=== PATIENT | female | born 1965 | race Caucasian/White ===

== ENCOUNTER → 2018-05-29 09:44 | Outpatient (CLI) | payer BC, SELFPAY ==
--- NOTE | 2018-05-29 09:48 | MM_ITS ---
MM Dig screening mamm BI w/CAD ORDERING PHYSICIAN : Britta Georges MD PATIENT AGE: 52 years GENDER: Female COMPARISON: June 2012, December 20152016, November 2014 INDICATION: ITS.REASON: SCREENING no no hormones no new complaints Family history.Maternal aunt with breast cancer. TECHNIQUE: Standard CC and MLO images were obtained. R2 CAD reviewed. Right breast CC nipple profile FINDINGS: Moderate breast density. No dominant mass nor suspicious calcifications No new areas of significant concern.. Stable well RIGHT BREAST:Stable lateral extension of soft tissue on cc view LEFT BREAST:Stable island of parenchymal tissue deep lateral left breast IMPRESSION: Stable bilateral mammogram. No new areas concern follow-up in one year recommended BI-RADS Category: 1 Negative RECOMMENDED FOLLOW-UP: 1YR 1 YEAR FOLLOW-UP (A letter has been sent to the patient regarding results of the study.)
== END ==
PROVIDERS: PCP Family Medicine; Visit Provider Family Medicine
DX: Z12.31 Encounter for screening mammogram for malignant neoplasm of breast (principal)
CPT/HCPCS: 77067

== ENCOUNTER → 2018-11-21 14:09 | Outpatient (POV) | payer BC, SELFPAY | PROVIDERS: Visit Provider Dermatology | DX: Z00.00 Encounter for general adult medical examination without abnormal findings (principal) ==

== ENCOUNTER → 2021-03-03 08:09 | Outpatient (CLI) | payer BC, SELFPAY ==
[2021-03-03 08:59] LABS: Chloride 105 mmol/L (98-107)
[2021-03-03 09:00] LABS: Potassium 4.2 mmoL/L (3.5-5.1); Sodium 140 mmol/L (136-145)
[2021-03-03 09:02] LABS: Alanine Aminotransferase 31 U/L (12-78); Albumin Level 4.2 g/dl (3.5-5.0); Albumin/Globulin Ratio 1.7 (1.1-1.8); Alkaline Phosphatase 68 U/L (38-126); Anion Gap 12.2 mEq/L (5-15); Aspartate Amino Transferase 31 U/L (14-36); Bilirubin,Total 0.6 mg/dl (0.2-1.3); Blood Urea Nitrogen 11 mg/dl (7-17); Calcium 9.5 mg/dl (8.4-10.2); Carbon Dioxide 27 mmol/L (22.0-30.0); Cholesterol 213 mg/dl (140-200); Estimated Glomerular Filt Rate 87 ml/min (>60); GFR (African American) 106 ML/MIN (>60); Globulin 2.5 g/dL (1.3-3.2); Glucose 87 mg/dl (74-100); Total Protein,Serum 6.7 g/dl (6.3-8.2); Triglycerides 186 mg/dl (30-150); VLDL Cholesterol 37 mg/dL (0-40)
[2021-03-03 09:03] LABS: Chol/HDL Ratio 4.3 (1-3.5); HDL Cholesterol 49 mg/dl (40-60)
[2021-03-03 09:14] LABS: Direct LDL Cholesterol 134.46 mg/dL (100-129)
[2021-03-03 09:33] LABS: Thyroid Stimulating Hormone 1.87 uIU/mL (0.465-4.68)
== END ==
PROVIDERS: Visit Provider Physician Assistant
DX: I10 Essential (primary) hypertension (principal); E78.2 Mixed hyperlipidemia
CPT/HCPCS: 36415; 80053; 80061; 84443

== ENCOUNTER → 2022-04-16 14:36 | Outpatient (CLI) | payer BC, SELFPAY ==
--- NOTE | 2022-04-16 14:46 | XR_ITS ---
FINAL REPORT CLINICAL HISTORY: Rt thumb cyst FINDINGS: RIGHT HAND 3 views of the right hand were obtained. There is no acute fracture or dislocation. Visualized joint spaces are normally aligned. There is a small chronic calcification adjacent to the 1st IP joint. There is soft tissue swelling overlying this. IMPRESSION: Soft tissue swelling overlying a small chronic calcification adjacent to the 1st IP joint. Reviewed, Interpreted and Dictated by Javed Lopez III, MD Transcribed by Erendira Goddard Authenticated and . [facility]
== END ==
PROVIDERS: PCP Family Medicine; Visit Provider Orthopaedic Surgery
DX: M71.341 Other bursal cyst, right hand (principal)
CPT/HCPCS: 73130

== ENCOUNTER → 2022-06-14 16:21 | Outpatient (CLI) | payer BC, OTHER, SELFPAY ==
[2022-06-14 16:28] LABS: Microscopic, Urine URINE MICROSCOPIC (MICROSCOPIC)
--- NOTE | 2022-06-14 16:38 | XR_ITS ---
PROCEDURE INFORMATION: Exam: XR Chest Exam date and time: 06/14/2022 4:48 PM Age: 56 years old Clinical indication: Screening exam; Pre-operative exam; Other: Pre op for cyst removal on right thumb; Additional info: Preop TECHNIQUE: Imaging protocol: Radiologic exam of the chest. Views: 2 views. COMPARISON: No relevant prior studies available. FINDINGS: Lungs: Unremarkable. No consolidation. Pleural spaces: Unremarkable. No pleural effusion. No pneumothorax. Heart/Mediastinum: Unremarkable. No cardiomegaly. Bones/joints: Unremarkable. IMPRESSION: No acute findings.
[2022-06-14 16:44] LABS: Basophils # 0.1 K/mm3 (0-0.2); Basophils % 1.2 % (0.1-2.0); Eosinophils # 0.3 K/mm3 (0.0-0.4); Eosinophils % 3.4 % (0.1-12.0); Hematocrit 43.6 % (37.0-47.0); Hemoglobin 13.6 g/dL (12.2-16.2); Lymphocytes % 27.1 % (10-50); Mean Corpuscular HGB Conc 31.2 g/dL (31.8-35.4); Mean Corpuscular Hemoglobin 28.3 pg (27.0-31.2); Mean Corpuscular Volume 90.8 fl (81-99); Mean Platelet Volume 7.8 fl (7.4-10.4); Monocytes # 0.5 K/mm3 (0.1-1.0); Monocytes % 6.6 % (1.7-9.3); Neutrophils # 4.6 K/mm3 (1.8-7.8); Neutrophils % 61.6 % (37.0-80.0); Platelet Count 291 K/mm3 (142-424); Red Cell Distribution Width 13.9 % (11.5-17.5); White Blood Count 7.5 K/mm3 (4.8-10.8)
[2022-06-14 17:09] LABS: Appearance,Urine CLEAR (Clear); Bilirubin,Urine Negative (Negative); Blood, Urine Negative (Negative); Color,Urine YELLOW (Yellow); Glucose,Urine (UA) Negative (Negative); Ketones,Urine Negative (Negative); Leukocyte Esterase,Urine Negative (Negative); Nitrate,Urine Negative (Negative); Protein,Urine Negative (Negative); Specific Gravity, Urine 1.025 (1.005-1.030); Urobilinogen,Urine 0.2 EU/dl (0.2)
[2022-06-14 17:23] LABS: Alanine Aminotransferase 29 U/L (12-78); Albumin Level 4.5 g/dl (3.5-5.0); Albumin/Globulin Ratio 1.7 (1.1-1.8); Alkaline Phosphatase 78 U/L (38-126); Anion Gap 10.9 mEq/L (5-15); Aspartate Amino Transferase 27 U/L (14-36); Bilirubin,Total 0.2 mg/dl (0.2-1.3); Blood Urea Nitrogen 13 mg/dl (7-17); Calcium 10.1 mg/dl (8.4-10.2); Carbon Dioxide 28 mmol/L (22.0-30.0); Chloride 104 mmol/L (98-107); Estimated Glomerular Filt Rate 87 ml/min (>60); GFR (African American) 105 ML/MIN (>60); Globulin 2.7 g/dL (1.3-3.2); Glucose 82 mg/dl (74-100); Potassium 3.9 mmoL/L (3.5-5.1); Sodium 139 mmol/L (136-145); Total Protein,Serum 7.2 g/dl (6.3-8.2)
[2022-06-14 17:37] LABS: Squamous Epithelial Cell,Urine Occasional #/hpf (0-5); WBC,Urine Occasional #/hpf (0-3)
== END ==
PROVIDERS: PCP Family Medicine; Visit Provider Orthopaedic Surgery
DX: Z01.818 Encounter for other preprocedural examination (principal); M67.441 Ganglion, right hand
CPT/HCPCS: 36415; 71046; 80053; 81001; 85025

== ENCOUNTER 2022-06-21 11:39 | Day surgery (SDC) | payer BC, OTHER, SELFPAY ==
[2022-06-17 13:36] VITALS: BMI 38.6
[2022-06-21 12:29] VITALS: BP 128/79; PULSE 82; RESP 18; TEMP 36.6; O2SAT 93
--- NOTE | 2022-06-21 13:25 | EXP.ANES.CKL ---
[facility] Disclaimer: The information contained in this section may have been updated after the patient was seen, as this information can be updated by other users. Medical History Allergies History of gastroesophageal reflux (GERD) Hypertension Hypertension Surgical History H/O esophagogastroduodenoscopy History of colonoscopy History of surgery History of tonsillectomy [place] teeth removed Family History Other Family history of cancer Family history of myocardial infarction Social History Smoking Status: Former smoker how long ago did patient quit smokin YEARS AGO alcohol intake: never substance use type: denies use current occupational status: employed Travel in the last 8 weeks: None [facility] Anesthesia Checklist Patient Identification Patient Identification: Arm Band and Verbal (Name & ) Structural Data Admitted From: Home Planned Operative Procedure/s: Excision of cyst - R thumb Consent for Planned Operative Procedure(s) Verified: Yes NPO Status Verified Time NPO: 00:00 Additional verifications Anesthesia Reactions: No Hx Blood Transfusions: No Blood Transfusion Reaction: No Airway Assessment C-Spine Mobility Assessed: Yes TMJ Mobility Assessed: Yes Dentition: Good Dentition Neurological Assessment Level of Consciousness: Awake Hx Seizures: No Numbness or tingling in extremities: No Anesthesia Plan Anesthesia Risk discussed: Yes Anesthesia Plan: Verified ASA Class: III Anesthesia Type: MAC
[2022-06-21 14:08] VITALS: TEMP 43
--- NOTE | 2022-06-21 14:24 | EXP.OP.NOTE ---
Date of procedure: 06/21/22 Pre-op Diagnosis:: Cyst right thumb Post-op Diagnosis:: Same Procedure performed:: Excision cyst right thumb Surgeon:: Tanvir Lechuga DO SENIOR TECHNICAL SUPPORT ENGINEER:: Jacek Kent Anesthesia: MAC and local Estimated blood loss (mL): 0 Operative findings:: Cyst adjacent to digital nerve right thumb Operative note:: Patient identified preoperatively right hand marked yes my initials transported operative suite placed upon operating bed. Patient given sedation. Right upper extremity prepped draped normal sterile fashion. Once prepped and draped final operative timeout performed to identify proper patient procedure and extremity. Everyone involved the case agreed. No counter indications to beginning. Did receive preoperative antibiotics. Marking pen was used to make plan incision over the soft tissue mass to right thumb. Local anesthesia was infiltrated to the incision site with a mixture of half percent Marcaine and 1% lidocaine. Esmarch was used exsanguinate extremity pneumatic tourniquet inflated to 250 mmHg. Skin knife was used incise through skin. Careful dissection was taken down and blunt dissection with the scissors were performed. There is cystic mass adjacent to the digital nerve on the radial aspect of the thumb. Care was taken to excise the cyst wall. Which was passed off for pathology. There was cystic fluid tissue within the mass. Care was taken to remove as much of cyst as possible. Copious irrigation wound performed. Hemostasis obtained electrocautery bipolar. Skin closed with 4-0 nylon suture. Tourniquet deflated. Sterile dressing placed. Patient waken sedation taken recovery stable condition. Condition: stable Disposition: PACU Specimens:: Right thumb cyst Complications:: None apparent.
[2022-06-21 14:25] VITALS: BP 118/73; PULSE 90; RESP 18; TEMP 37.3; O2SAT 96
[2022-06-21 14:40] VITALS: BP 127/78; PULSE 84; RESP 18; O2SAT 98
[2022-06-21 14:55] VITALS: BP 134/81; PULSE 81; RESP 16; O2SAT 97
== END 2022-06-21 14:55 | disposition home or self-care (01) ==
PROVIDERS: PCP Family Medicine; Visit Provider Orthopaedic Surgery
PROC: (CPT 26160; principal; 2022-06-21 13:15)
DX: M67.441 Ganglion, right hand (principal); Z79.899 Other long term (current) drug therapy
CPT/HCPCS: 26160; 88305; 88342; 96374

== ENCOUNTER → 2023-01-25 06:48 | Outpatient (CLI) | payer BC, OTHER, SELFPAY ==
--- NOTE | 2023-01-25 | CA_ITS ---
APPROVED REPORT Exam: Exercise Treadmill Technologist: Mirian Roche Ht: 5 ft 4 in Wt: 239 lbs BSA: 2.11 m2 HR: 67 bpm BP: 149/87 mmHg Rhythm: NSR Indications: Chest pain Stress Test Details Test: Carl HR Resting HR: 81 bpm Max Heart Rate (APMHR): 164 bpm Max HR Achieved: 155 bpm Target HR (85% APMHR): 139 bpm % of APMHR: 95 Recovery HR: 130 bpm HR response to stress: Normal HR response to stress BP Resting BP: 149.0/87.0 mmHg Max BP: 200.0/100.0 mmHg Recovery BP: 137.0/77.0 mmHg BP response to stress: Abnormal hypertensive response to stress. ECG Resting ECG: Sinus rhythm Stress ECG: < 1mm upsloping ST depression in lateral leads Arrhythmia: PVCs, PACs, ventricular couplets Recovery ECG: Return to baseline within 3 minutes of recovery Recovery Arrhythmia: PVCs Clinical Exercise duration: 08:21 min Highest Stage Achieved: Exercise capacity: 10.1 METs Overall Exercise Capacity for Age: Average Stress ECG Conclusion The patient was able to exercise for a total of 8 minutes, 21 seconds. She achieved a total of 10.1 METS. She has an average exercise capacity compared to age and sex matched peers. She has a normal HR, but exaggerated BP, response to exercise. Symptoms: Dyspnea Arrhythmias/Ectopy: PVCs, ventricular couplets, PACs ST-T Changes: Less than [address] depression. Conclusion: Average exercise capacity. Hypertensive response to stress. Possible ischemia present on stress EKG. Ectopy, including PVCs, ventricular couplets, and PACs, are present during stress. Myoview images are reported separately. Test Summary REST . . . . . . . Resting REST 01:51 0.0 0.0 81 . 149/ 87 . . Stage 1 01:00 10.0 1.7 86 . . . . Stage 1 02:00 10.0 1.7 96 . . . . Stage 1 03:00 10.0 1.7 100 . . . . Stage 2 01:00 12.0 2.5 109 . 170/100 . . Stage 2 02:00 12.0 2.5 119 . 170/100 . . Stage 2 03:00 12.0 2.5 122 . 190/ 80 . . Stage 3 01:00 14.0 3.4 140 . . . . Stage 3 . . . . . . . Myoview Injected Stage 3 02:00 14.0 3.4 153 . . . . Stage 3 02:21 14.0 3.4 155 . . . Stop exercise at 08:21 RECOVERY 01:00 0.0 0.0 135 . 200/100 . . RECOVERY 02:00 0.0 0.0 123 . 200/100 . . RECOVERY 03:00 0.0 0.0 110 . 175/ 85 . . RECOVERY 04:00 0.0 0.0 111 . 182/ 83 . . RECOVERY 05:00 0.0 0.0 112 . 182/ 83 . . RECOVERY 06:00 0.0 0.0 109 . 182/ 83 . . RECOVERY 06:33 0.0 0.0 124 . 137/ 77 . . Electronically signed by : Kerrie Boateng, 01/26/2023 22:32:16
--- NOTE | 2023-01-25 06:58 | NM_ITS ---
APPROVED REPORT Exam: Nuclear Stress Test Indication: OBESITY, HTN, FM HX, C.P. Patient Location: Outpatient Stress Tech: Mirian Roche [place] Tech:DARREN Alcaraz RT (R)(N)(M) Ht: 5 ft 4 in Wt: 239 lbs Bra Size: D HR: 81 bpm BP: 149/87 mmHg BSA: 2.11 m2 TID: 1.19 BMI: 41.0 History: OBESITY, HTN, FM HX, C.P. Procedure: Patient exercised on Carl protocol 8:21 minutes and sec, resting heart rate 81 bpm, resting blood pressure 149/87 mmHg, with exercise maximum heart rate achived was 155 bpm which is 95 % of the maximum predicted heart rate and blood pressure was 200/100 mmHg. Test was stopped due to FATIGUE. Patient denied any complaint of chest pain. Patient has Average exercise capacity, achieved 10.1 METs of workload on treadmill, the blood pressure response to exercise was Hypertensive. Cardiac Stress and Resting SPECT Images: Cardiac Stress and Resting SPECT images were obtained using technetium 99m Myoview 31.5 mCi stress and 10.05 mCi at rest. This is a technically difficult study due to body habitus and soft tissue overlying the cardiac borders as seen on raw images. This may affect the diagnostic interpretation of the study findings. Resting and stress imaging in both supine and prone positions demonstrate a small sized, mild, fixed perfusion defect in the mid to distal anterior wall. This may represent possible soft tissue attenuation, however true perfusion defect cannot be entirely ruled out. Inferior wall tapering is also present, most suggestive of diaphragmatic attenuation. Gated imaging demonstrates normal global and regional LV systolic function. LVEF is calculated at 58%. Conclusion: This is a technically difficult study due to body habitus and soft tissue overlying the cardiac borders as seen on raw images. This may affect the diagnostic interpretation of the study findings. Small sized, mild, fixed perfusion defect in the mid to distal anterior wall. This may represent possible soft tissue attenuation, however true perfusion defect cannot be entirely ruled out. No evidence of reversible ischemia. Gated imaging demonstrates normal global and regional LV systolic function. LVEF is calculated at 58%. Electronically signed by : Kerrie Boateng, 01/26/2023 22:37:53
== END ==
PROVIDERS: PCP Family Medicine; Visit Provider Physician Assistant
DX: R07.9 Chest pain, unspecified (principal)
CPT/HCPCS: 78452; 93017; A9502

== ENCOUNTER 2023-02-03 08:12 | Day surgery (SDC) | payer BC, OTHER, SELFPAY ==
[2023-02-03] VITALS (10 sets, daily range): BP systolic 114–154; BP diastolic 63–99; PULSE 56–70; RESP 16–20; O2SAT 69–97; BMI 40.3
--- NOTE | 2023-02-03 07:09 | IR_ITS ---
APPROVED REPORT Patient Location: Outpatient PROCEDURES Left heart catheterization Left ventriculogram Selective coronary INDICATION Angina pectoris, Abnormal Myoview, Informed consent was obtained prior to the procedure. COMPLICATIONS NONE Estimated Blood Loss: LESS THAN 10 ML TECHNIQUE One percent lidocaine used to anesthetize the right anterior aspect of the wrist. The right radial artery was accessed via the Seldinger technique. A 6 Guamanian sheath was placed in the right radial artery. 150 mg magnesium sulfate, 800 mcg of nitroglycerin, 1mg Lidocaine and 5000 U Heparin were given through the arterial sheath. The papa catheter was also used to perform left heart catheterization, left ventriculogram and selective coronary angiogram. At the end of the procedure the sheath was removed good hemostasis was achieved using Traclet band, patient was transferred to the postop holding area in stable condition. ANGIOGRAPHIC RESULTS The left main artery Normal The left anterior descending artery Normal The circumflex artery Normal The right coronary artery Massively large dominant and normal The [place] ventriculogram reveals Normal 65% The left ventricular end-diastolic pressure 30 mmHg IMPRESSION Normal coronary arteries Normal ejection fraction Moderate to severely elevated LVEDP PLAN 1. Treatment of diastolic dysfunction 2. Diuresis 3. Recommend sleep study Electronically signed by : Abdirizak Olson MD 02/03/2023 11:54:56
[2023-02-03 09:08] LABS: Basophils % 0.7 % (0.1-2.0); Eosinophils # 0.2 K/mm3 (0.0-0.4); Eosinophils % 3.6 % (0.1-12.0); Hemoglobin 13.9 g/dL (12.2-16.2); Lymphocytes # 1.5 K/mm3 (0.7-4.5); Lymphocytes % 24.3 % (10-50); Mean Corpuscular HGB Conc 31.5 g/dL (31.8-35.4); Mean Corpuscular Hemoglobin 28.7 pg (27.0-31.2); Mean Corpuscular Volume 91.1 fl (81-99); Mean Platelet Volume 7.8 fl (7.4-10.4); Monocytes # 0.6 K/mm3 (0.1-1.0); Monocytes % 8.9 % (1.7-9.3); Neutrophils # 3.9 K/mm3 (1.8-7.8); Neutrophils % 62.5 % (37.0-80.0); Platelet Count 278 K/mm3 (142-424); Red Blood Count 4.83 M/mm3 (4.20-5.40); Red Cell Distribution Width 13.7 % (11.5-17.5); White Blood Count 6.3 K/mm3 (4.8-10.8)
[2023-02-03 09:10] LABS: Chloride 105 mmol/L (98-107); Potassium 3.7 mmoL/L (3.5-5.1); Sodium 140 mmol/L (136-145)
[2023-02-03 09:13] LABS: Anion Gap 9.7 mEq/L (5-15); Blood Urea Nitrogen 14 mg/dl (7-17); Calcium 9.9 mg/dl (8.4-10.2); Carbon Dioxide 29 mmol/L (22.0-30.0); Creatinine Clearance Estimated 151 mL/min (50-200); Estimated Glomerular Filt Rate 87 ml/min (>60); GFR (African American) 105 ML/MIN (>60); Glucose 94 mg/dl (74-100)
== END 2023-02-03 14:24 | disposition home or self-care (01) ==
PROVIDERS: PCP Family Medicine; Visit Provider Internal Medicine
DX: I25.118 Atherosclerotic heart disease of native coronary artery with other forms of angina pectoris (principal); Z87.891 Personal history of nicotine dependence; Z82.49 Family history of ischemic heart disease and other diseases of the circulatory system; I10 Essential (primary) hypertension; Z79.899 Other long term (current) drug therapy
CPT/HCPCS: 80048; 85025; 93458; 99152; C1725; C1769; J1644; Q9967

== ENCOUNTER 2024-09-26 16:29 | Outpatient (CLI) | payer BC, OTHER, SELFPAY ==
--- NOTE | 2024-09-26 16:33 | XR_ITS ---
FINAL REPORT CLINICAL HISTORY: FALL, INJURY OF RT KNEE FINDINGS: Right knee Three views were obtained. There is no fracture or dislocation. There are minimal degenerative changes. Mild osteopenia is identified. No soft tissue abnormality is identified. IMPRESSION: No acute process. Reviewed, Interpreted and Dictated by Britta Bethea MD Transcribed by Alisson Snyder Authenticated and [facility]
== END 2024-09-26 23:59 | disposition home or self-care (01) ==
LOC: RAD 16:30
PROVIDERS: PCP Family Medicine; Visit Provider Physician Assistant
DX: M25.561 Pain in right knee (principal); S89.91XA Unspecified injury of right lower leg, initial encounter
CPT/HCPCS: 73562

== ENCOUNTER 2024-12-10 06:49 | Outpatient (CLI) | payer BC, OTHER, SELFPAY ==
--- NOTE | 2024-12-10 06:53 | MR_ITS ---
FINAL REPORT TECHNIQUE: Multiplanar and multisequence imaging the right knee was obtained without contrast. CLINICAL HISTORY: RIGHT KNEE PAIN FINDINGS: Bones: There is no acute fracture or marrow edema. There is mild lateral patellar subluxation with chondromalacia patella. There is grade 3 cartilage loss of the lateral patellar facet. There are no full thickness cartilage defects. Menisci: No meniscal tear is present. Ligaments: No cruciate or collateral ligament tear is present. Tendons/Muscles: The quadriceps and patellar tendons are within normal limits. The biceps femoris tendon and iliotibial tract are intact. The popliteus tendon is normal. Other: There is a moderate to large joint effusion. Mild prepatellar edema is noted. Remaining soft tissues are normal. IMPRESSION: Lateral patellar subluxation with chondromalacia patella. Reviewed, Interpreted and Dictated by Lyn Gallagher MD Transcribed by Homa Buchanan Authenticated and [facility]
--- NOTE | 2024-12-10 06:55 | XR_ITS ---
FINAL REPORT CLINICAL HISTORY: RULE OUT METALLIC FOREIGN BODY FOR MRI. prior hx metal in left eye. rust in right eye FINDINGS: ORBITS Look up and look down views were obtained for MRI clearance. No radiopaque foreign body identified. IMPRESSION: No radiopaque foreign body. Reviewed, Interpreted and Dictated by Lyn Gallagher MD Transcribed by Luann Gaytan Authenticated and . [facility]
== END 2024-12-10 23:59 | disposition home or self-care (01) ==
LOC: RAD 06:50
PROVIDERS: PCP Family Medicine; Visit Provider Physician Assistant
DX: S83.011A Lateral subluxation of right patella, initial encounter (principal); M22.41 Chondromalacia patellae, right knee
CPT/HCPCS: 70200; 73721

== ENCOUNTER → 2025-06-03 07:58 | Outpatient (CLI) | payer BC, OTHER, SELFPAY ==
--- OUTSIDE RECORDS SUMMARY | 2023-12-27 04:45 | XMS_ITS ---
[facility] Address [address] [place] [id number] Care Team Providers Care Returning Officer Name Role Phone Eva Georges Primary Care Provider Abdelrahman Roach Unavailable [phone] Allergies Allergen (clinical drug ingredient) Drug/Non Drug Allergy documented on EMR Reaction Allergy Type Onset Date Status sulfamethoxazole / trimethoprim Bactrim SOA Drug Allergy Active hydrochlorothiazide hydroCHLOROthiazide body aches D rug Allergy Active lisinopril Lisinopril Cough Drug Allergy Active REASON FOR VISIT 6 week f/u Medications Medication SIG (Take, Route, Frequency, Duration) Notes Start Date End Date Status Atorvastatin Calcium 10 MG 1 tablet Oral ly Once a day; Duration: 90 days 09/02/2023 Active Irbesartan 300 MG 1 tablet Orally Once a day 11/15/2023 Active Montelukast Sodium 10 MG TAKE 1 TABLET B Y MOUTH EVERY DAY FOR 90 DAYS; Duration: 90 Active Gmndqeqjy-Lpslnhav-PQ 30-2-10 MG/5ML 5-10 ml orally 4 times per day, prn 06/25/2022 Not-Taking Triamcinolone Acetonide 0.025 % 1 raymon applied topically 3 times a day; Duration: 7 day(s) 02/11/2020 Active Advil 200 MG 1 tab(s) orally ever y 4 hours Active Metoprolol Succinate ER 50 MG 1 tablet Orally Once a day; Duration: 90 days 12/27/2023 Active Vital Signs Weight 242.2 lbs 12/27/2023 Blood pressure systolic 130 mm Hg 12/27/19 24 Blood pressure diastolic 82 mm Hg 024 Heart Rate 80 /min 12/27/2023 Height 64.50 in 12/27/2023 BMI 40.93 kg/m2 12/27/2023 Encounters Encounter Location Date Provider Diagnosis [facility] [address] [facility] [address] [place] [id number] 12/27/2023 Abdelrahman Roach HTN (hypertension) I 10 and Mixed hyperlipidemia E78.2 Assessments Encounter Date Diagnosis (ICD Code) Assessment Notes Treatment Notes Treatment Clinical Notes Section Notes 12/27/2023 HTN (hypertension) (ICD-10 - I10) 12/27/2023 Mixed hyperlipidemia (ICD-10 - E78.2) Plan Of Treatment Medication Medication Name Sig Start Date Stop Date Notes Atorvastatin Calcium 10 MG 1 tablet Oral ly Once a day; Duration: 90 days 09/02/2023 Aspirin Adult Low Dose 81 MG 1 tab(s) orally bedtime 11/26 Metoprolol Succinate ER 25 MG 2 tablets Orally Once a day 01/20/2023 Irbesartan 300 MG 1 tablet Orally Once a day 11/15/2023 Metoprolol Succinate ER 50 MG 1 tablet O rally Once a day; Duration: 90 days 12/27/2023 Next Appt Details Follow Up: 3 Months fasting, Reason: Progress Notes * Gita LIVINGSTONDOB:1965 ( 59 yo F)Acc No.[id number]:12/27/2023 Progress Notes Patient: Gita TRUJILLO Provider: Lucius Roach M.D. :1965 A ge:58 Y S ex:Female Date:12/27/2023 Address:[address], [id number] Pcp:Eva Georges Subjective: * Chief Complaints: * 1 . 6 week f/u. * HPI: C ardiology: 58 year old female presents with c/o Blood Pressure Elevated?Pt here for 6 week f/u on hypertension, Irbesartan increased to 300mg and Metoprolol to 50mg. States she has been checking bp at home and has log with her today. * ROS: D ERMATOLOGY: no R narda. n o H luisa. G ASTROENTEROLOGY: no N ausea. n o V omiting. U ROLOGY: no D ifficulty urinating. n o B lood in urine. * Medical History: H ypertension, Migraines, Hyperlipidemia. * Surgical History: N eg Heart Cath-Dr Cortés @ [facility] 2007, colonoscopy 07/01/2014, DNC 06/2016, Endometrial Ablasion - Dr. Pringle - [facility] 03/01/2018, Cyst Removal of Right Thumb 06/2022, Left heart cath at [facility] 2022. * Hospitalization/Major Diagno stic Procedure: D enies Past Hospitalization. * Family History: F ather: 46 yrs, Heart attack. M other: alive 83 yrs, thyroid problems, HTN. 1 sister(s) . . * Social History: C URRENT TOBACCO USE S moking Status: Patient does NOT smoke. C affeine: yes, frequency: coffee and tea. Home smoke detector use: yes. Alcohol: No. * Medications: T aking Aspirin Adult Low Dose 81 MG Tablet Delayed Release 1 tab(s) orally bedtime , Taking Advil 200 MG Tablet 1 tab(s) orally every 4 hours , Taking Triamcinolone Acetonide 0.025 % Cream 1 raymon applied topically 3 times a day , Taking Montelukast Sodium 10 MG Tablet TAKE 1 TABLET BY MOUTH EVERY DAY FOR 90 DAYS , Taking Irbesartan 300 MG Tablet 1 tablet Orally Once a day , Taking Metoprolol Succinate ER 25 MG Tablet Extended Release 24 Hour 2 tablets Orally Once a day , Taking Atorvastatin Calcium 10 MG Tablet 1 tablet Orally Once a day , Not-Taking Jfxnzvhov-Qgntwjtu-LE 30-2-10 MG/5ML Syrup 5-10 ml orally 4 times per day, prn , Discontinued Mupirocin 2 % Ointment 1 raymon applied topically 3 times a day , Discontinued Irbesartan 150 MG Tablet TAKE 1 TABLET BY MOUTH EVERY DAY FOR 30 DAYS , Medication List reviewed and reconciled with the patient * Allergies: B actrim: SOA, hydroCHLOROthiazide: body aches, Lisinopril: Cough - Side Effects. Objective: * Vitals: W t:242.2, Temp:98.0, BP:130/82, HR:80, Nurse:lee, Ht: 64.50, BMI:40.93. * Examination: C ardiology: General Appearance: p leasant, NAD. H eart sounds: R RR, normal S1, S2. L ungs: c lear, no rales or wheezes. Assessment: * Assessment: 1. H TN (hypertension) - I10 (Primary) 2 . M ixed hyperlipidemia - E78.2? Plan: * Treatment: 2. M ixed hyperlipidemia Refill Atorvastatin Calcium Tablet, 10 MG, 1 tablet, Orally, Once a day, 90 days, 90, Refills 1.? 3. O thers Stop Aspirin Adult Low Dose Tablet Delayed Release, 81 MG, 1 tab(s), orally, bedtime. * Follow Up: 3 Months fasting * Images: Billing Information: * Visit Code: 60971 Office Visit, Est Pt., Level 3. * Procedure Codes: * Electronic signature of Edel Roach MD on 06/03/2025 at 08:01 AM EST Sign off status: Pending * Provider: Lucius Roach M.D. Date: 0 12/27/2023 Generated for Kennedy reyes/Jude/Loitting on: 08/03/2024 08:01 AM EST History and Physical Notes * HPI (History of Present Illness) Category Sub-Category Detail Notes Category Not es Cardiology Blood Pressure Elevated Pt here for 6 week f/u on hypertension, Irbesartan increased to 300mg and Metoprolol to 50mg. States she has been checking bp at home and has log with her today Examination Category Sub-Category Detail Notes Category Not es Cardiology Lungs: clear, no rales or wheezes Heart sounds: RRR, normal S1, S2 General Appearance: pleasant, NAD
--- OUTSIDE RECORDS SUMMARY | 2024-01-26 10:00 | XMS_ITS ---
Author Organization [facility] Address [address] [place] [address] Care Team Providers Care Rigging Man Name Role Phone Meliza Branch Unavailable [phone] YarySavanna Unavailable [phone] REASON FOR VISIT Annual Social History Sex Assigned At : Social History Observation Description Sex Assigned At Female Encounters Encounter Location Date Provider Diagnosis [facility] [address] [facility] [address] [place] [address] 01/26/2024 Savanna Yary Plan Of Treatment Next Appt Details Provider Name:Savanna Pringle, 01/24/2026 02:15:00 PM, [address] [facility], [place], [address], Progress Notes * Gita LIV[place]STON LDOB:1965 (59 yo F)Acc No.[id number]:01/26/2024 Progress Note Patient: Aiyana mayuriramGita Provider: Iram Pringle MD :1965 A ge:58 Y S ex:Female Date:01/26/2024 Address:[id number] Subjective: * Chief Complaints: * A nnual * Electronic signature of Swapna Pringle MD on 06/03/2025 at 08:00 AM EST Sign off status: Pending Visit Status: R /S (Rescheduled) * Provider: S arah Borders, MD Date: 0 01/26/2024 Generated for Kennedy reyes/Jude/Lana on: 1 08/03/2024 08:00 AM EST
--- OUTSIDE RECORDS SUMMARY | 2024-02-02 10:30 | XMS_ITS ---
Author Organization [facility] Address [address] [place] [address] Care Team Providers Care Lead Producer Name Role Phone Meliza Branch Unavailable [phone] YarySavanna Unavailable [phone] REASON FOR VISIT Annual Social History Sex Assigned At : Social History Observation Description Sex Assigned At Female Encounters Encounter Location Date Provider Diagnosis [facility] [address] [facility] [address] [place] [address] 02/02/2024 Savanna Yary Plan Of Treatment Next Appt Details Provider Name:Savanna Pringle, 01/24/2026 02:15:00 PM, [address] [facility], [place], [address], Progress Notes * Gita LIV[place]STON LDOB:1965 (59 yo F)Acc No.[id number]:02/02/2024 Progress Note Patient: Aiyana mayuriramGita Provider: Iram Pringle MD :1965 A ge:58 Y S ex:Female Date:02/02/2024 Address:[id number] Subjective: * Chief Complaints: * A nnual * Electronic signature of Swapna Pringle MD on 06/03/2025 at 08:01 AM EST Sign off status: Pending Visit Status: R /S (Rescheduled) * Provider: S arah Borders, MD Date: 0 02/02/2024 Generated for Kennedy reyes/Jude/Lana on: 1 08/03/2024 08:01 AM EST
--- OUTSIDE RECORDS SUMMARY | 2024-04-12 09:15 | XMS_ITS ---
Author Organization [facility] Address [address] [place] [address] Care Team Providers Care Service Dismantler Name Role Phone Meliza Branch Unavailable [phone] YarySavanna Unavailable [phone] REASON FOR VISIT Annual Social History Sex Assigned At : Social History Observation Description Sex Assigned At Female Encounters Encounter Location Date Provider Diagnosis [facility] [address] [facility] [address] [place] [address] 04/12/2024 Savanna Yary Plan Of Treatment Next Appt Details Provider Name:Savanna Pringle, 01/24/2026 02:15:00 PM, [address] [facility], [place], [address], Progress Notes * Gita L[place] LDOB:1965 (59 yo F)Acc No.[id number]:04/12/2024 Progress Note Patient: Aiyana mayuriramGita Provider: Iram Pringle MD :1965 A ge:58 Y S ex:Female Date:04/12/2024 Address:[address] [id number] Subjective: * Chief Complaints: * A nnual * Electronic signature of Swapna Pringle MD on 06/03/2025 at 08:02 AM EST Sign off status: Pending Visit Status: R /S (Rescheduled) * Provider: S arah Borders, MD Date: Generated for Kennedy reyes/Jude/Lana on: 08/03/2024 08:02 AM EST
--- OUTSIDE RECORDS SUMMARY | 2024-05-07 11:15 | XMS_ITS ---
Author Organization [facility] Address [address] [facility] [address] [place] [phone] Care Team Providers Care Regional Sales Associate Name Role Phone Eva Georges Primary Care Provider [phone] REASON FOR VISIT Flu Shot Medications Medication SIG (Take, Route, Frequency, Duration) Notes Start Date End Date Status Advil 200 MG 1 tab(s) orally ever y 4 hours Active Triamcinolone Acetonide 0.025 % 1 raymon applied topically 3 times a day; Duration: 7 day(s) 02/11/2020 Active Atorvastatin Calcium 10 MG 1 tablet Oral ly Once a day; Duration: 90 days 09/02/2023 Active Irbesartan 300 MG 1 tablet Orally Once a day 11/15/2023 Active Metoprolol Succinate ER 50 MG 1 tablet Orally Once a day; Duration: 90 days 12/27/2023 Active Montelukast Sodium 10 MG TAKE 1 TABLET B Y MOUTH EVERY DAY; Duration: 90 Active Eqnuijynn-Oiyfyssp-AQ 30-2-10 MG/5ML 5-10 ml orally 4 times per day, prn 06/25/2022 Not-Taking Immunizations Vaccine Route Administration Date Status Comme nts Fluzone Quad (6months&older) IM Intramuscular 05/07/2024 Administered Encounters Encounter Location Date Provider Diagnosis [place] [address] [place] [phone] 05/07/2024 Eva Georges Encounter for immunization Z23 Assessments Encounter Date Diagnosis (ICD Code) Assessment Notes Treatment Notes Treatment Clinical Notes Section Notes 05/07/2024 Encounter for immunization (ICD-10 - Z23) Plan Of Treatment No Information Progress Notes * Gita LIVINGSTONDOB:1965 ( 59 yo F)Acc No.[id number]:05/07/2024 Patient: Gita TRUJILLO Provider: Eva Georges M.D. :1965 A ge:58 Y S ex:Female Date:05/07/2024 [id number] Subjective: * Chief Complaints: * 1 . Flu Shot. * Medical History: * Medications: T aking Advil 200 MG Tablet 1 tab(s) orally every 4 hours , Taking Triamcinolone Acetonide 0.025 % Cream 1 raymon applied topically 3 times a day , Taking Atorvastatin Calcium 10 MG Tablet 1 tablet Orally Once a day , Taking Irbesartan 300 MG Tablet 1 tablet Orally Once a day , Taking Metoprolol Succinate ER 50 MG Tablet Extended Release 24 Hour 1 tablet Orally Once a day , Taking Montelukast Sodium 10 MG Tablet TAKE 1 TABLET BY MOUTH EVERY DAY , Not-Taking Mrncwyyip-Zbjiihsu-OX 30-2-10 MG/5ML Syrup 5-10 ml orally 4 times per day, prn , Medication List reviewed and reconciled with the patient Objective: * Vitals: Assessment: * Assessment: 1. E ncounter for immunization - Z23 (Primary) Plan: * Treatment: * Immunizations: Fluzone Quad (6months&older) : 0.5 mL (Route: Intramuscular) given by Radha Jackson on Left Deltoid (Encounter for immunization) * Images: Billing Information: * Visit Code: * Procedure Codes: * Electronic signature of Eva Georges MD on 06/03/2025 at 08:02 AM EST Sign off status: Pending * Provider: Eva Georges M.D. Date: Generated for Kennedy reyes/Jude/Lana on: 08/03/2024 08:02 AM EST
--- OUTSIDE RECORDS SUMMARY | 2024-08-16 11:00 | XMS_ITS ---
Author Organization [facility] Address [address] [place] [address] Care Team Providers Care Tire Assembler Name Role Phone Meliza Branch Unavailable [phone] YarySavanna Unavailable [phone] REASON FOR VISIT Annual Social History Sex Assigned At : Social History Observation Description Sex Assigned At Female Encounters Encounter Location Date Provider Diagnosis [facility] [address] [facility] [address] [place] [address] 08/16/2024 Savanna Yary Plan Of Treatment Next Appt Details Provider Name:Savanna Pringle, 01/24/2026 02:15:00 PM, [address] [facility], [address], [place], [address], Progress Notes * Gita LIVINGSTON LDOB:1965 (59 yo F)Acc No.[id number]:08/16/2024 Progress Note Patient: Aiyana mayuriramGita Provider: Iram Pringle MD :1965 A ge:58 Y S ex:Female Date:08/16/2024 Address[id number] Subjective: * Chief Complaints: * A nnual * Electronic signature of Swapna Pringle MD on 06/03/2025 at 08:03 AM EST Sign off status: Pending Visit Status: R /S (Rescheduled) * Provider: S arah Borders, MD Date: 0 08/16/2024 Generated for Kennedy reyes/Jude/Lana on: 1 08/03/2024 08:03 AM EST
--- OUTSIDE RECORDS SUMMARY | 2024-09-26 10:45 | XMS_ITS ---
[facility] [address] [place] [phone] Care Team Providers Care Sales Representative Cash Registers Name Role Phone Eva Georges Primary Care Provider [phone] Alyson Granda Unavailable [phone] Allergies Allergen (clinical drug ingredient) Drug/Non Drug Allergy documented on EMR Reaction Allergy Type Onset Date Status sulfamethoxazole / trimethoprim Bactrim SOA Drug Allergy Active hydrochlorothiazide hydroCHLOROthiazide body aches D rug Allergy Active lisinopril Lisinopril Cough Drug Allergy Active Results Component Value Reference Range Notes X ray : Knee, right Reviewed date:09/28/2024 08:59:09 AM Interpretation: Performing Lab: Notes/Report: REASON FOR VISIT pain in right knee Medications Medication SIG (Take, Route, Frequency, Duration) Notes Start Date End Date Status Irbesartan 300 MG 1 tablet Orally Once a day; Duration: 90 days Active Cephalexin 500 MG 1 capsule Orally Two times a day; Duration: 10 day(s) 09/26/2024 Active Atorvastatin Calcium 10 MG 1 tablet Oral ly Once a day; Duration: 90 days 09/02/2023 Active Metoprolol Succinate ER 50 MG TAKE 1 TABLET BY MOUTH EVERY DAY FOR 90 DAYS; Duration: 90 Active Qqnycsrwx-Mvukzfom-FL 30-2-10 MG/5ML 5-10 ml orally 4 times per day, prn 06/25/2022 Not-Taking Triamcinolone Acetonide 0.025 % 1 raymon applied topically 3 times a day; Duration: 7 day(s) 02/11/2020 Active Advil 200 MG 1 tab(s) orally ever y 4 hours Active Montelukast Sodium 10 MG TAKE 1 TABLET B Y MOUTH EVERY DAY; Duration: 90 Active Vital Signs Weight 251.4 lbs 09/26/2024 Blood pressure systolic 124 mm Hg 09/27/19 25 Blood pressure diastolic 84 mm Hg 025 Heart Rate 85 /min 09/26/2024 Height 64.50 in 09/26/2024 BMI 42.48 kg/m2 09/26/2024 Encounters Encounter Location Date Provider Diagnosis [facility] [address] [place] [phone] 09/26/2024 Alyson Granda Injury of right knee , initial encounter S89.91XA and Left leg cellulitis L03.116 Assessments Encounter Date Diagnosis (ICD Code) Assessment Notes Treatment Notes Treatment Clinical Notes Section Notes 09/26/2024 Injury of right knee, initial encounter (ICD-10 - S89.91XA) 09/26/2024 Left leg cellulitis (ICD-10 - L03.116) Plan Of Treatment Medication Medication Name Sig Start Date Stop Date Notes Cephalexin 500 MG 1 capsule Orally Two times a day; Duration: 10 day(s) 09/26/2024 Next Appt Details Follow Up: via phone to repo rt test results, Reason: Progress Notes * Gita LIVINGSTONDOB:1965 ( 59 yo F)Acc No.[id number]:09/26/2024 Progress Notes Patient: Gita TRUJILLO Provider: DARRYN Bhatia :1965 A ge:58 Y S ex:Female Date:09/26/2024 Address:[address] [id number] Pcp:Eva Georges Subjective: * Chief Complaints: * 1 . Pain in right knee. * HPI: K nee/Jaramillo: The pt is here today with c/o right knee pain. Pt states she fell Tuesday on the [place] and has had pain and some popping in the right knee with walking. Pt states she fell again this morning in the shower and twisted the knee. 58 year old female presents with c/o knee pain. * ROS: D ERMATOLOGY: no R narda. n o H luisa. G ASTROENTEROLOGY: no N ausea. n o V omiting. n o D iarrhea.? U ROLOGY: no D ifficulty urinating. n o B lood in urine. * Medical History: H ypertension, Migraines, Hyperlipidemia. * Surgical History: N eg Heart Cath-Dr Cortés @ [facility] 2007, colonoscopy 07/01/2014, DNC 06/2016, Endometrial Ablasion - Dr. Pringle - [facility] 03/01/2018, Cyst Removal of Right Thumb 06/2022, Left heart cath at [facility] 2022. * Family History: F ather: 46 yrs, Heart attack. M other: alive 84 yrs, thyroid problems, HTN. 1 sister(s) . . * Social History: C URRENT TOBACCO USE S moking Status: Patient does NOT smoke. C affeine: yes, frequency: coffee and tea. Home smoke detector use: yes. Alcohol: No. * Medications: T aking Advil 200 MG Tablet 1 tab(s) orally every 4 hours , Taking Triamcinolone Acetonide 0.025 % Cream 1 raymon applied topically 3 times a day , Taking Montelukast Sodium 10 MG Tablet TAKE 1 TABLET BY MOUTH EVERY DAY , Taking Irbesartan 300 MG Tablet 1 tablet Orally Once a day , Taking Metoprolol Succinate ER 50 MG Tablet Extended Release 24 Hour TAKE 1 TABLET BY MOUTH EVERY DAY FOR 90 DAYS , Taking Atorvastatin Calcium 10 MG Tablet 1 tablet Orally Once a day , Not-Taking Vfbtsjypc-Belbhftu-AG 30-2-10 MG/5ML Syrup 5-10 ml orally 4 times per day, prn , Medication List reviewed and reconciled with the patient * Allergies: B actrim: SOA, hydroCHLOROthiazide: body aches, Lisinopril: Cough - Side Effects. Objective: * Vitals: W t:251.4, Temp:98.9, BP:124/84, HR:85, Nurse:BRUNILDA, Ht: 64.50, BMI:42.48. * Examination: G eneral Examination: General Appearance: N AD. C hest: n ormal shape and expansion. H eart: R SR. L ungs: c lear to auscultation. S kin: left upper thigh with a skin tear from fall with some surrounding erythema. K nee / Jaramillo: Knee: right. I nspection: abrasion just below the patella from fall. P alpation: ttp at the base of the patella, tenderness on medial jointline. C ollateral ligaments: intact medially and laterally. R asiya of motion: pain at extremes of motion. M cmurray: p ositive medially. D rawer test: negative.?Patellofemoral joint: crepitations with movement. Assessment: * Assessment: 1. L eft leg cellulitis - L03.116 (Primary) 2 . I njury of right knee, initial encounter - S89.91XA Plan: * Treatment: 2. I njury of right knee, initial encounter I maging: X ray : Knee, right (Performed Date - 09/26/2024) * Procedure Codes: 3 074F SYST BP LT 130 MM HG, 3079F DIAST BP 80-89 MM HG * Follow Up: v ia phone to report test results * Images: Billing Information: * Visit Code: 06483 Office Visit, Est Pt., Level 4. * Procedure Codes: 3074F SYST BP LT 130 MM HG. 3079F DIAST BP 80-89 MM HG. * Electronic signature of DARRYN Calzada on 06/03/2025 at 08:02 AM EST Sign off status: Pending * Provider: DARRYN Bhatia Date: 0 09/26/2024 Generated for Marinoi ng/Fajeraldg/eTransmitting on: 1 08/03/2024 08:02 AM EST History and Physical Notes * HPI (History of Present Illness) Category Sub-Category Detail Notes Category Not es Knee/Jaramillo knee pain Examination Category Sub-Category Detail Notes Category Not es General Examination Heart: RSR Lungs: clear to auscultatio n General Appearance: NAD Skin: left upper thigh wit h a skin tear from fall with some surrounding erythema Chest: normal shape and exp ansion Knee / Jaramillo Nehemiah: positive medially Drawer test: negative Patellofemoral joint: crepitations with movement Palpation: ttp at the base of t he patella, tenderness on medial jointline Knee: right Inspection: abrasion just below the patella from fall Range of motion: pain at extremes of motion Collateral ligaments: intact medially an d laterally
--- OUTSIDE RECORDS SUMMARY | 2024-11-22 10:00 | XMS_ITS ---
Author Organization [facility] Address [address] [place] [address] Care Team Providers Care Capacity Planning Engineer Name Role Phone Meliza Branch Unavailable [phone] Savanna Pringle Unavailable [phone] Allergies Allergen (clinical drug ingredient) Drug/Non Drug Allergy documented on EMR Reaction Allergy Type Onset Date Status Information temporarily unavailable SHELLFISH (uncoded) Unspecified Allergy 02/19/2014 Active Information temporarily unavailable PEANUTS (uncoded) Unspecified Allergy 02/19/2014 Active Information temporarily unavailable SULFAMETHOXAZOLE-TRI METHOPRIM Unspecified Drug Allergy 02/19/2014 Active REASON FOR VISIT annual exam Medications Medication SIG (Take, Route, Frequency, Duration) Notes Start Date End Date Status Irbesartan 300 MG Tablet 1 tablet Orally Once a day Active Atorvastatin Calcium 10 MG Tablet 1 tablet Orally Once a day Active Metoprolol Succinate ER 50 MG Tablet Extended Release 24 Hour 1 tablet Orally Once a day Active Social History Sex Assigned At : Social History Observation Description Sex Assigned At Female Social History Drugs/Alcohol: Social Info Question Answer Notes Steroid Use Have you used anabolic (body building) st eroids? No Encounters Encounter Location Date Provider Diagnosis [facility] [address] [place] [address] 11/22/2024 Savanna Pringle Plan Of Treatment Next Appt Details Provider Name:Savanna Pringle, 01/24/2026 02:15:00 PM, [address], [place], [address], Progress Notes * Gita LIVINGSTON LDOB:1965 (59 yo F)Acc No.[id number]:11/22/2024 Progress Note Patient: Gita Batista Provider: Iram Pringle MD :1965 A ge:59 Y S ex:Female Date:11/22/2024 [facility] Subjective: * Chief Complaints: * A nnual exam * Medical History: HTN Obesity Allergies PMB * Slide Maker History: P ap Smear History: D ate of Last Pap/HPV: 0 08/26/2022 L ast Pap/HPV Results: N ormal Pap,Negative HPV M enstrual History: L MP: 1 08/2017 T bin between periods: 2 0 D uration: 6 * OB History: P regnancy History (GPA) Living 0 C-Sections 0 G P : 0 * Surgical History: Hysteroscopy w/ D&C and Myosure Tonsillectomy Heart Cath Endoscopy [place] Teeth Extraction Endometrial Ablation * Hospitalization/Major Diagno stic Procedure: Denies Past Hospitalization. * Family History: none. * Social History: T obacco Use: T obacco Use/Smoking S ROSA STATUS: Former smoker. D rugs/Alcohol: D rugs D RUG USE: no. Alcohol Screen A LCOHOL USE: 0. Steroid Use H ave you used anabolic (body building) steroids? N o * Medications: T akingAtorvastatin Calcium 10 MG Tablet 1 tablet Orally Once a day Irbesartan 300 MG Tablet 1 tablet Orally Once a day Metoprolol Succinate ER 50 MG Tablet Extended Release 24 Hour 1 tablet Orally Once a day Taking Atorvastatin Calcium 10 MG Tablet 1 tablet Orally Once a day Taking Irbesartan 300 MG Tablet 1 tablet Orally Once a day Taking Metoprolol Succinate ER 50 MG Tablet Extended Release 24 Hour 1 tablet Orally Once a day DiscontinuedCephalexin 250 MG Capsule TAKE 2 CAPSULES BY MOUTH EVERY 12 HOURS FOR 10 DAYS Oral Lisinopril 30 MG Tablet TAKE 1 TABLET BY MOUTH EVERY DAY Oral Montelukast Sodium 10 MG Tablet TAKE 1 TABLET BY MOUTH EVERY DAY FOR 90 DAYS Oral Discontinued Cephalexin 250 MG Capsule TAKE 2 CAPSULES BY MOUTH EVERY 12 HOURS FOR 10 DAYS Oral Discontinued Lisinopril 30 MG Tablet TAKE 1 TABLET BY MOUTH EVERY DAY Oral Discontinued Montelukast Sodium 10 MG Tablet TAKE 1 TABLET BY MOUTH EVERY DAY FOR 90 DAYS Oral * Allergies: P EANUTS: Unspecified - Allergy - Onset Date [id number]: Unspecified - Allergy - Onset Date [id number]-TRIMETHOPRIM: Unspecified - Allergy - Onset Date 2014-02-19 * Electronic signature of Swapna Pringle MD on 06/03/2025 at 08:02 AM EST Sign off status: Pending Visit Status: R /S (Rescheduled) * Provider: Iram Pringle MD Date: 0 11/22/2024 Generated for Kennedy reyes/Jude/Lana on: 08/03/2024 08:02 AM EST
--- OUTSIDE RECORDS SUMMARY | 2024-12-20 04:00 | XMS_ITS ---
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5 - 10 lymph 26.2% 15 - 50 mid 6.9% 2 - 15 gran 66.9% 35 - 80 rbc 4.80 3.5 - 5.5 hgb 14.1 11.5 - 16.5 hct 43.6 35 - 55 mcv 90.8 75 - 100 mch 29.3 25 - 35 mchc 32.2 31 - 38 platlet 197 100 - 400 P-Comprehensive Metabolic Pa adela (CMP) Reviewed date:12/21/2024 01:10:59 PM Interpretation: Performing Lab: Notes/Report: Test performed by [facility] ([place]) [address] [place] [address] , [address], [place] [address] Chalo Sow MD, Lathe Operator CLIA: [id number] Sodium 140 135-145 mmol/L Potassium 4.1 3.5-5.3 mmol/L Chloride 103 97-108 mmol/L CO2 25 22-32 mmol/L Glucose 92 65-99 mg/dL BUN 10 6-20 mg/dL Creatinine 0.60 0.50-1.00 mg/dL Calcium 9.3 8.6-10.4 mg/dL eGFR by Creatinine 104 >59 mL/min/1.73m2 Protein 6.8 6.0-8.3 g/dL Albumin 4.4 3.5-5.3 g/dL Alkaline Phosphatase 66 35-121 IU/L ALT (SGPT) 34 <5-47 IU/L AST (SGOT) 31 <5-40 IU/L Bilirubin, Total 0.4 <0.2-1.2 mg/dL A/G Ratio 1.8 1.1-2.5 P-Lipid Panel Reviewed date:12/21/2024 01:10:59 PM Interpretation: Performing Lab: Notes/Report: Test performed by [facility], [address] , [place] [address] Chalo Sow MD, Lathe Operator CLIA: [id number] Cholesterol 165 <200 mg/dL Triglycerides 136 <150 mg/dL HDL Cholesterol 38 >39 mg/dL Cholesterol / HDL Ratio 4.34 0.00-4.44 Ratio Non-HDL Cholesterol 127 <130 mg/dL LDL Cholesterol (Calculation) 100 <130 mg/dL LDL Cholesterol Levels* Less than 100 mg/dL Optimal 100 to 129 mg/dL Near Optimal/ Above Optimal 130 to 159 mg/dL Borderline High 160 to 189 mg/dL High 190 mg/dL and above Very High * Categories as recommended by the 2004 ATPIII guidelines LDL/HDL Ratio 2.6 <3.3 Ratio LDL Cholesterol Patient History Test Date: 09/01/2023 LDL Results: 137 Units: mg/dL % Change: - Test Date: 12/20/2024 LDL Results: 100 Units: mg/dL % Change: -27% P-TSH reflex to FT4 Reviewed date:12/21/2024 01:10:59 PM Interpretation: Performing Lab: Notes/Report: Test performed by [facility] ([place]) [facility] , [address], [place] [address] Chalo Sow MD, Lathe Operator CLIA: [id number] TSH reflex to FT4 2.30 0.43-5.25 mU/L Reason For Referral Diagnosis 1 Right knee pain, uns pecified chronicity (M25.561) [facility] Referring Provider First Name Alyson Referring Provider Last Name Jesus Alberto 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 Provider 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 Referred Provider [facility]ty [facility] General Notes Alyson Granda 06/2025 12:34:57 PM >Needs an appt with Yoli Tejada Brynn 12/20/2024 01:28:41 PM > 12/24/2024 at 02:30pm; lvm for patient with date/time Referral Priority Routine REASON FOR VISIT sinus infection and coughing Medications Medication SIG (Take, Route, Frequency, Duration) Notes Start Date End Date Status Metoprolol Succinate ER 50 MG TAKE 1 TABLET BY MOUTH EVERY DAY; Duration: 90 Active Yhmmjwahp-Hamkcgua-XX 30-2-10 MG/5ML 5-10 ml orally 4 times per day, prn 06/25/2022 Not-Taking Irbesartan 300 MG TAKE 1 TABLET BY ARACELY TH EVERY DAY FOR 90 DAYS; Duration: 90 Active Promethazine-DM 6.25-15 MG/5ML 5 mL orally every 6 hours prn; Duration: 5 days 12/20/2024 Active Atorvastatin Calcium 10 MG 1 tablet Oral ly Once a day; Duration: 90 days 09/02/2023 Active Advil 200 MG 1 tab(s) orally ever y 4 hours Active Triamcinolone Acetonide 0.025 % 1 raymon applied topically 3 times a day; Duration: 7 day(s) 02/11/2020 Active Vital Signs Weight 245.6 lbs 12/20/2024 Blood pressure systolic 140 mm Hg 12/21/19 25 Blood pressure diastolic 90 mm Hg 025 Heart Rate 70 /min 12/20/2024 Height 64.50 in 12/20/2024 BMI 41.5 kg/m2 12/20/2024 z Encounters Encounter Location Date [facility] [address] [phone] 12/20/2024 Alyson Granda HTN (hypertension) I 10 ; Mixed hyperlipidemia E78.2 ; Abnormal TSH R79.89 ; Acute URI J06.9 and Right knee pain, unspecified chronicity M25.561 Assessments Encounter Date Diagnosis (ICD Code) Assessment Notes Treatment Notes Treatment Clinical Notes Section Notes 12/20/2024 HTN (hypertension) (ICD-10 - I10) 12/20/2024 Mixed hyperlipidemia (ICD-10 - E78.2) 12/20/2024 Abnormal TSH (ICD-10 - R79.89) 12/20/2024 Acute URI (ICD-10 - J06.9) 12/20/2024 Right knee pain, unspecified chronicity (ICD-10 - M25.561) Plan Of Treatment Medication Medication Name Sig Start Date Stop Date Notes Promethazine-DM 6.25-15 MG/5ML 5 mL oral ly every 6 hours prn; Duration: 5 days 12/20/2024 Referrals Referral Date Details 12/20/2024 12/20/2024 Next Appt Details Follow Up: via phone to repo rt test results, Reason: Progress Notes * Richard LIVINGSTNO:1965 ( 59 yo F)Acc No.[id number]:12/20/2024 Progress Notes Patient: Gita TRUJILLO Provider: DARRYN Bhatia :1965 A ge:59 Y S ex:Female Date:12/20/2024 [id number] Pcp:Eva Georges Subjective: * Chief Complaints: * 1 . Sinus infection and coughing. * HPI: E NT/respiratory: The patient is here today with c/o some productive yellow cough and sinus pain and pressure. Pt states this started about 5 days ago and has gotten worse since yesterday. 59 year old female presents with c/o cough. c/o facial pain/pressure. Denies : sore throat. D enies : Fever. * ROS: D ERMATOLOGY: no R narda. n o H luisa. G ASTROENTEROLOGY: no N ausea. n o V omiting. n o D iarrhea.? U ROLOGY: no D ifficulty urinating. n o B lood in urine. * Medical History: H ypertension, Migraines, Hyperlipidemia. * Surgical History: N eg Heart Cath-Dr Cortés @ [facility] 2007, colonoscopy 07/01/2014, DNC 06/2016, Endometrial Ablasion - Dr. Pringle - [facility] 03/01/2018, Cyst Removal of Right Thumb 06/2022, Left heart cath at [facility] 2022. * Family History: F ather: [...] day , Taking Irbesartan 300 MG Tablet TAKE 1 TABLET BY MOUTH EVERY DAY FOR 90 DAYS , Taking Metoprolol Succinate ER 50 MG Tablet Extended Release 24 Hour TAKE 1 TABLET BY MOUTH EVERY DAY , Not-Taking Swtehjvbv-Mnrztyrf-OJ 30-2-10 MG/5ML Syrup 5-10 ml orally 4 times per day, prn , Discontinued Montelukast Sodium 10 MG Tablet TAKE 1 TABLET BY MOUTH EVERY DAY , Discontinued Cephalexin 500 MG Capsule 1 capsule Orally Two times a day , Medication List reviewed and reconciled with the patient * Allergies: B actrim: SOA, hydroCHLOROthiazide: body aches, Lisinopril: Cough - Side Effects. Objective: * Vitals: W t: 245.6, Temp: 98.4, BP: 140/90, HR: 70, O2 Sat: 99% on RA, Nurse: BRUNILDA, Ht: 64.50, BMI:41.5. z. * Examination: G eneral Examination: General Appearance: N AD. H EENT: u nremarkable.?Oral cavity: n o lesions, mucosa moist and WNL, no erythema. N lynne: s upple, no lymphadenopathy. C hest: n ormal shape and expansion. H eart: R SR. L ungs: c lear to auscultation. A bdomen: b owel sounds present, soft, nontender. N eurologic Exam:?Intact, gait normal. S kin: n ormal, no rash. P eripheral pulses: n ormal (2+) bilaterally. E xtremities: n o leg edema. Assessment: * Assessment: 1. H TN (hypertension) - I10 (Primary) 2 . M ixed hyperlipidemia - E78.2? 3. A bnormal TSH - R79.89 4 . A cute URI - J06.9 ?5. R ight knee pain, unspecified chronicity - M25.561 Plan: * Treatment: Value Reference Range A /G Ratio 1.8 1.1-2.5 - * A lbumin 4.4 3.5-5.3 - g/dL * A lkaline Phosphatase 66 35-121 - IU/L * A LT (SGPT) 34 <5-47 - IU/L * A ST (SGOT) 31 <5-40 - IU/L * B ilirubin, Total 0.4 <0.2-1.2 - mg/dL * B UN 10 6-20 - mg/dL * C alcium 9.3 8.6-10.4 - mg/dL * C hloride 103 97-108 - mmol/L * C O2 25 22-32 - mmol/L * C reatinine 0.60 0.50-1.00 - mg/dL * G lucose 92 65-99 - mg/dL * P otassium 4.1 3.5-5.3 - mmol/L * S odium 140 135-145 - mmol/L * P rotein 6.8 6.0-8.3 - g/dL * e GFR by Creatinine 104 >59 - mL/min/1.73m2 * Alyson Granda 12/20/2024 0 9:34:51 AM EDT >room 9, purple Kathy Wray 12/21/2024 01:10:46 PM EDT > See phone encounter ?LAB: CBC Venipuncture (in house) (Collection Date & Time - 12/20/2024)* Value Reference Range w bc 5.8 3.5 - 10 * l ymph 26.2% 15 - 50 * m id 6.9% 2 - 15 * g ran 66.9% 35 - 80 * r bc 4.80 3.5 - 5.5 * h gb 14.1 11.5 - 16.5 * h ct 43.6 35 - 55 * m cv 90.8 75 - 100 * m ch 29.3 25 - 35 * m chc 32.2 31 - 38 * p latlet 197 100 - 400 * Radha Jackson 12/20/2024 09 :40:55 AM EDT > Provider reviewed results while patient in office. Kathy Wray 12/21/2024 01:10:46 PM EDT > See phone encounter 2.?Mixed hyperlipidemia?LAB: P-Lipid Panel (Collection Date & Time - 12/20/2024 08:35 AM)* Value Reference Range C holesterol / HDL Ratio 4.34 0.00-4.44 - Ratio * C holesterol 165 <200 - mg/dL * H DL Cholesterol 38 L >39 - mg/dL * L DL Cholesterol (Calculation) 100 <130 - mg/d L * L DL/HDL Ratio 2.6 <3.3 - Ratio * N on-HDL Cholesterol 127 <130 - mg/dL * T riglycerides 136 <150 - mg/dL * Alyson Granda 12/20/2024 0 9:34:51 AM EDT >room 9, Kathy Servin 12/21/2024 01:10:46 PM EDT > See phone encounter 3.?Abnormal TSH?LAB: P-TSH reflex to FT4 (Collection Date & Time - 12/20/2024 08:35 AM)* Value Reference Range T SH reflex to FT4 2.30 0.43-5.25 - mU/L * Alyson Granda 12/20/2024 0 9:34:51 AM EDT >room 9, Kathy Servin 12/21/2024 01:10:46 PM EDT > See phone encounter 4.?Acute URI? Start Promethazine-DM Syrup, 6.25-15 MG/5ML, 5 mL, orally, every 6 hours prn, 5 days, 240 mL, Refills 1.??5.?Right knee pain, unspecified chronicity? Referral To:Orthopedic Surgery ?Reason: * Procedure Codes: 8 5025 CBC WITH AUTO DIFF, 1036F TOBACCO NON-USER * Follow Up: v ia phone to report test results * Images: Billing Information: * Visit Code: 96363 Office Visit, Est Pt., Level 4. * Procedure Codes: 24686 CBC WITH AUTO DIFF. 1036F TOBACCO NON-USER. * Electronic signature of DARRYN Calzada on 06/03/2025 at 08:02 AM EST Sign off status: Pending * Provider: DARRYN Bhatia Date: 0 12/20/2024 Generated for Marinoi ng/Fapavihtra/eTransmitting on: 1 08/03/2024 08:02 AM EST History and Physical Notes * HPI (History of Present Illness) Category Sub-Category Detail Notes Category Not es ENT/respiratory sore throat facial pain/pressure cough Fever Examination Category Sub-Category Detail Notes Category Not es General Examination HEENT: unremarkable Heart: RSR Lungs: clear to auscultatio n Abdomen: bowel sounds present , soft, nontender Extremities: no leg edema General Appearance: NAD Skin: normal, no rash Neurologic Exam: Intact, gait normal Neck: supple, no lymphaden opathy Oral cavity: no lesions, mucosa m oist and WNL, no erythema Peripheral pulses: normal (2+) bilatera lly Chest: normal shape and exp ansion Consultation Request Notes Referral Date Referring Provider Referred Provider Not es 12/20/2024 Alyson Granda ,
--- OUTSIDE RECORDS SUMMARY | 2025-02-14 04:00 | XMS_ITS ---
Author Organization [facility] Address [address] 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 [address] [place] [phone] 02/14/2025 Alyson Granda Plan Of Treatment No Information Progress Notes * Gita LIVINGSTONDOB:1965 ( 59 yo F)Acc No.[id number]:02/14/2025 Progress Notes Patient: Gita TRUJILLO Provider: DARRYN Bhatia :1965 A ge:59 Y S ex:Female Date:02/14/2025 Address[id number] Pcp:Eva Georges Subjective: * Chief Complaints: * 1 . 3 month check with fasting labs. * Medical History: Objective: * Vitals: Assessment: Plan: * Treatment: * Images: Billing Information: * Visit Code: * Procedure Codes: * Electronic signature of DARRYN Calzada on 06/03/2025 at 08:00 AM EST Sign off status: Pending * Provider: DARRYN Bhatia Date: 0 02/14/2025 Generated for Printi ng/Faxing/eTransmitting on: 08/03/2024 08:00 AM EST
--- OUTSIDE RECORDS SUMMARY | 2025-02-25 04:45 | XMS_ITS ---
[facility] Address [address] [place] [phone] Care Team Providers Care Senior Program Manager Name Role Phone Eva Georges Primary Care Provider [phone] Gabi Grissom Unavailable [phone] Allergies Allergen (clinical drug ingredient) Drug/Non Drug Allergy documented on EMR Reaction Allergy Type Onset Date Status sulfamethoxazole / trimethoprim Bactrim SOA Drug Allergy Active hydrochlorothiazide hydroCHLOROthiazide body aches D rug Allergy Active lisinopril Lisinopril Cough Drug Allergy Active REASON FOR VISIT poss spider bite Medications Medication SIG (Take, Route, Frequency, Duration) Notes Start Date End Date Status Metoprolol Succinate ER 50 MG 1 tablet Orally Once a day; Duration: 90 days Active Montelukast Sodium 10 MG 1 tablet Orally Once a day; Duration: 90 days 02/25/2025 Active Atorvastatin Calcium 10 MG 1 tablet Oral ly Once a day; Duration: 90 days 09/02/2023 Active Irbesartan 300 MG 1 tablet Orally Once a day; Duration: 90 days Active Advil 200 MG 1 tab(s) orally ever y 4 hours Active Claritin 10 MG 1 tablet Orally Once a day Active Triamcinolone Acetonide 0.025 % 1 raymon applied topically 3 times a day; Duration: 7 day(s) 02/11/2020 Active Promethazine-DM 6.25-15 MG/5ML 5 mL orally every 6 hours prn; Duration: 5 days 12/20/2024 Active Problems Problem Type SNOMED Code ICD Code Onset Dates Problem Status W/U Status Risk Notes Problem Environmental allergy (496080462) Environmental allergies (Z91.048) Active confirmed Vital Signs Weight 247.8 lbs 02/25/2025 Blood pressure systolic 136 mm Hg 02/26/20 25 Blood pressure diastolic 86 mm Hg 025 Heart Rate 72 /min 02/25/2025 Height 64.50 in 02/25/2025 BMI 41.87 kg/m2 02/25/2025 Encounters Encounter Location Date Provider Diagnosis [facility] [address] [place] [phone] 02/25/2025 Gabi Jaciel Environmental allerg ies Z91.048 and Bug bite W57.XXXA Assessments Encounter Date Diagnosis (ICD Code) Assessment Notes Treatment Notes Treatment Clinical Notes Section Notes 02/25/2025 Environmental allergies (ICD-10 - Z91.048) 02/25/2025 Bug bite (ICD-10 - W57.XXXA) continue to wash with antibacteriak soap Plan Of Treatment Medication Medication Name Sig Start Date Stop Date Notes Montelukast Sodium 10 MG 1 tablet Orally Once a day; Duration: 90 days 02/25/2025 Treatment Notes Assessment Notes Bug bite continue to wash wit h antibacteriak soap Next Appt Details Follow Up: prn, Reason: Progress Notes * Gita LIVINGSTONDOB:1965 ( 59 yo F)Acc No.[id number]:02/25/2025 Progress Notes Patient: Gita TRUJILLO Provider: CALOS Meneses :1965 A ge:59 Y S ex:Female Date:02/25/2025 [place] [id number] Pcp:Eva Georges Subjective: * Chief Complaints: * 1 . Poss spider bite. * HPI: D ermatology: 59 year old female presents with c/o bug bites P t is here today for c/o a possible spider bite. Pt states its on the back of her neck. Pt sts that it does hurts and is r ed. Pt sts this happened a few weeks ago. Denies : rash. D enies : itching. D enies : hair loss.?Denies : Swelling. E NT/respiratory: c/o nasal congestion. c/o rhinorrhea. c/o post nasal drainage. Denies : sore throat. D enies : Fever. D enies : ear pain. D enies : smoking. * ROS: D ERMATOLOGY: no R narda. n o H luisa. G ASTROENTEROLOGY: no N ausea. n o V omiting. n o D iarrhea.? U ROLOGY: no D ifficulty urinating. n o B lood in urine. * Medical History: H ypertension, Migraines, Hyperlipidemia. * Surgical History: N eg Heart Cath-Dr Cortés @ [facility] 2007, colonoscopy 07/01/2014, DNC 06/2016, Endometrial Ablasion - Dr. Pringle - [facility] 03/01/2018, Cyst Removal of Right Thumb 06/2022, Left heart cath at [facility] 2022. * Family History: F ather: 46 yrs, Heart attack. M other: alive 84 yrs, thyroid problems, HTN. 1 sister(s) . . * Social History: C URRENT TOBACCO USE S moking Status: Patient does NOT smoke. C affeine: yes, frequency: coffee and tea. Home smoke detector use: yes. Alcohol: No. * Medications: T aking Claritin 10 MG Tablet 1 tablet Orally Once a day , Taking Advil 200 MG Tablet 1 tab(s) orally every 4 hours , Taking Triamcinolone Acetonide 0.025 % Cream 1 raymon applied topically 3 times a day , Taking Promethazine-DM 6.25-15 MG/5ML Syrup 5 mL orally every 6 hours prn , Taking Atorvastatin Calcium 10 MG Tablet 1 tablet Orally Once a day , Taking Irbesartan 300 MG Tablet 1 tablet Orally Once a day , Taking Metoprolol Succinate ER 50 MG Tablet Extended Release 24 Hour 1 tablet Orally Once a day , Discontinued Jswpmsrha-Cxevifai-VB 30-2-10 MG/5ML Syrup 5-10 ml orally 4 times per day, prn , Medication List reviewed and reconciled with the patient * Allergies: B actrim: SOA, hydroCHLOROthiazide: body aches, Lisinopril: Cough - Side Effects. Objective: * Vitals: W t: 247.8, Temp: 98.1, BP: 136/86, HR: 72, Nurse: pe, Ht: 64.50, BMI:41.87. * Examination: G eneral Examination: General Appearance: N AD, appears healthy, alert, pleasant, well nourished and hydrated. H EENT: s clera and conjunctiva clear, PERRLA, TM's normal, translucent. O ral cavity: m ucosa moist and WNL, no erythema. N lynne: s upple, no lymphadenopathy. H eart: R RR. N eurologic Exam: a lert and oriented. S kin: 2 mm reddened area with center; flat and tender; dry, Gabi Grissom 02/25/2025 01:16:15 PM EDT >. Assessment: * Assessment: 1. E nvironmental allergies - Z91.048 (Primary) 2 . B ug bite - W57.XXXA? Plan: * Treatment: 2. B ug bite Notes: continue to wash with antibacteriak soap * Procedure Codes: 1 036F TOBACCO NON-USER, 3075F SYST BP GE 130 - 139MM HG, 3079F DIAST BP 80-89 MM HG * Follow Up: p rn * Images: Billing Information: * Visit Code: 92712 Office Visit, Est Pt., Level 3. * Procedure Codes: 1036F TOBACCO NON-USER. 3075F SYST BP GE 130 - 139MM HG. 3079F DIAST BP 80-89 MM HG. * Electronic signature of Alize Grissom APRN on 06/03/2025 at 08:00 AM EST Sign off status: Pending * Provider: CALOS Meneses Date: 0 02/25/2025 Generated for Kennedy reyes/Jude/eTransmitting on: 08/03/2024 08:00 AM EST History and Physical Notes * HPI (History of Present Illness) Category Sub-Category Detail Notes Category Not es ENT/respiratory sore throat ear pain Fever post nasal drainage rhinorrhea nasal congestion smoking Dermatology itching rash hair loss bug bites Pt is here today for c/o a possible spider bite. Pt states its on the back of her neck. Pt sts that it does hurts and is red. Pt sts this happened a few weeks ago Swelling Examination Category Sub-Category Detail Notes Category Not es General Examination HEENT: sclera and c onjunctiva clear, PERRLA, TM's normal, translucent Heart: RRR General Appearance: NAD, appears healthy , alert, pleasant, well nourished and hydrated Skin: 2 mm reddened area w ith center; flat and tender; dry, GrissomGabi 02/25/2025 01:16:15 PM EDT > Neurologic Exam: alert and oriented Neck: supple, no lymphaden opathy Oral cavity: mucosa moist and WNL , no erythema
--- OUTSIDE RECORDS SUMMARY | 2025-03-29 09:15 | XMS_ITS ---
Author Organization [place] Address [address] [facility] [address] [place] [phone] Care Team Providers Care Employment Representative Name Role Phone Eva Georges Primary Care Provider Alyson Granda [phone] REASON FOR VISIT flu shot Medications Medication SIG (Take, Route, Frequency, Duration) Notes Start Date End Date Status Advil 200 MG 1 tab(s) orally ever y 4 hours Active Claritin 10 MG 1 tablet Orally Once a day Active Irbesartan 300 MG 1 tablet Orally Once a day; Duration: 90 days Active Metoprolol Succinate ER 50 MG 1 tablet Orally Once a day; Duration: 90 days Active Montelukast Sodium 10 MG 1 tablet Orally Once a day; Duration: 90 days 02/25/2025 Active Triamcinolone Acetonide 0.025 % 1 raymon applied topically 3 times a day; Duration: 7 day(s) 02/11/2020 Active Promethazine-DM 6.25-15 MG/5ML 5 mL orally every 6 hours prn; Duration: 5 days 12/20/2024 Active Atorvastatin Calcium 10 MG 1 tablet Oral ly Once a day; Duration: 90 days 09/02/2023 Active Immunizations Vaccine Route Administration Date Status Comme nts Fluzone Quad (6months&older) IM Intramuscular 03/29/2025 Administered Encounters Encounter Location Date Provider Diagnosis [place] [address] [facility] [address] [place] [phone] 03/29/2025 Alyson Granda Encounter for immunization Z23 and Snoring R06.83 Assessments Encounter Date Diagnosis (ICD Code) Assessment Notes Treatment Notes Treatment Clinical Notes Section Notes 03/29/2025 Encounter for immunization (ICD-10 - Z23) 03/29/2025 Snoring (ICD-10 - R06.83) Plan Of Treatment Pending Test Test Name Order Date sleep study 03/29/2025 Progress Notes * Gita LIVINGSTONDOB:1965 ( 59 yo F)Acc No.[id number]:03/29/2025 Patient: Gita TRUJILLO Provider: DARRYN Bhatia :1965 A ge:59 Y S ex:Female Date:03/29/2025 Address:[facility] [address] [facility] [id number] Pcp:Eva Georges Subjective: * Chief Complaints: * 1 . Flu shot. * Medical History: * Medications: T aking Claritin 10 MG [...] , Taking Montelukast Sodium 10 MG Tablet 1 tablet Orally Once a day , Medication List reviewed and reconciled with the patient Objective: * Vitals: Assessment: * Assessment: 1. E ncounter for immunization - Z23 (Primary) 2 . S noring - R06.83 ? Plan: * Treatment: * Immunizations: Fluzone Quad (6months&older) : 0.5 mL (Route: Intramuscular) given by LOWELL Hickman on Right Arm (Encounter for immunization) * Images: Billing Information: * Visit Code: * Procedure Codes: * Electronic signature of DARRYN Calzada on 06/03/2025 at 08:02 AM EST Sign off status: Pending * Provider: DARRYN Bhatia Date: 0 03/29/2025 Generated for Kennedy reyes/Jude/Lana on: 1 08/03/2024 08:02 AM EST
--- OUTSIDE RECORDS SUMMARY | 2025-05-15 08:15 | XMS_ITS ---
Author Organization [facility] Address [address] [place] [id number] Care Team Providers Care Car Electronics Installer Name Role Phone Eva Georges Primary Care Provider Alyson Granda Unavailable [phone] Allergies Allergen (clinical drug ingredient) Drug/Non Drug Allergy documented on EMR Reaction Allergy Type Onset Date Status sulfamethoxazole / trimethoprim Bactrim SOA Drug Allergy Active hydrochlorothiazide hydroCHLOROthiazide body aches D rug Allergy Active lisinopril Lisinopril Cough Drug Allergy Active Results Component Value Reference Range Notes Influenza Screen (in house) Reviewed date:05/16/2025 02:14:20 PM Interpretation: Performing Lab: Notes/Report: results neg CBC Fingerstick (in house) Reviewed date:05/16/2025 02:14:20 PM Interpretation: Performing Lab: Notes/Report: wbc 10.4 3.5 - 10 lym 26.2 15 - 50 mid 6.8 2 - 15 gran 67.0 35 - 80 rbc 4.89 3.5 - 5.5 hgb 14.5 11.5 - 16.5 hct 44.1 35 - 55 mcv 90.1 75 - 100 mch 29.7 25 - 35 mchc 32.9 31 - 38 plat 163 100 - 400 Covid test (in house) Reviewed date:05/16/2025 02:14:20 PM Interpretation: Performing Lab: Notes/Report: Result: neg REASON FOR VISIT sinus infection Medications Medication SIG (Take, Route, Frequency, Duration) Notes Start Date End Date Status Bromfed DM 2-30-10 MG/5ML 5-10 mL Orally four times a day, prn 05/15/2025 Active Atorvastatin Calcium 10 MG 1 tablet Oral ly Once a day; Duration: 90 days 09/02/2023 Active Irbesartan 300 MG 1 tablet Orally Once a day; Duration: 90 days Active Triamcinolone Acetonide 0.025 % 1 raymon applied topically 3 times a day; Duration: 7 day(s) 02/11/2020 Active Promethazine-DM 6.25-15 MG/5ML 5 mL orally every 6 hours prn; Duration: 5 days 12/20/2024 Active Cefdinir 300 MG 1 cap(s) Orally Two times a day; Duration: 10 days 05/15/2025 Active Metoprolol Succinate ER 50 MG 1 tablet Orally Once a day; Duration: 90 days Active Montelukast Sodium 10 MG 1 tablet Orally Once a day; Duration: 90 days 02/25/2025 Active Advil 200 MG 1 tab(s) orally ever y 4 hours Active Vital Signs Weight 253.6 lbs 05/15/2025 Blood pressure systolic 130 mm Hg 05/15/20 25 Blood pressure diastolic 80 mm Hg 025 Heart Rate 87 /min 05/15/2025 Height 64.50 in 05/15/2025 BMI 42.85 kg/m2 05/15/2025 Encounters Encounter Location Date Provider Diagnosis [facility] [address] [id number] 05/15/2025 Alyson Granda Acute URI J06.9 Assessments Encounter Date Diagnosis (ICD Code) Assessment Notes Treatment Notes Treatment Clinical Notes Section Notes 05/15/2025 Acute URI (ICD-10 - J06.9) Plan Of Treatment Medication Medication Name Sig Start Date Stop Date Notes Bromfed DM 2-30-10 MG/5ML 5-10 mL Orally four times a day, prn 05/15/2025 Cefdinir 300 MG 1 cap(s) Orally Two times a day; Duration: 10 days 05/15/2025 Next Appt Details Follow Up: prn, Reason: Progress Notes * Gita LIVINGSTONDOB:1965 ( 59 yo F)Acc No.[id number]:05/15/2025 Progress Notes Patient: Aiyana Gita PERLA Provider: DARRYN Bhatia :1965 A ge:59 Y S ex:Female Date:05/15/2025 Address:[place], [id number] Pcp:Eva Georges Subjective: * Chief Complaints: * 1 . Sinus infection. * HPI: E NT/respiratory: Pt states these symptoms started a week ago. Pt states she has noticed some blood tinged sputum. 59 year old female presents with c/o cough w ith blood stained sputum, greenish yellow sputum production. c/o nasal congestion s neezing, worse in the morning, worse at night, off and on, some blood, green drainage, yellow drainage. c/o ear stopped up l eft. Denies : sore throat. D enies : Fever. D enies : ear pain. D enies : Chest Pain. D enies : Short of Breath. D enies : headache. D enies : chest congestion. D enies : dizziness. D enies : body aches. * ROS: D ERMATOLOGY: no R narda. n o H luisa. G ASTROENTEROLOGY: no N ausea. n o V omiting. n o D iarrhea.? U ROLOGY: no D ifficulty urinating. n o B lood in urine. * Medical History: H ypertension, Migraines, Hyperlipidemia. * Surgical History: N eg Heart Cath-Dr Cortés @ [facility] 2007, colonoscopy 07/01/2014, DNC 06/2016, Endometrial Ablasion - Dr. Pringle - [facility] 03/01/2018, Cyst Removal of Right Thumb 06/2022, Left heart cath at [facility] 2022. * Family History: F ather: [...] tablet Orally Once a day , Discontinued Claritin 10 MG Tablet 1 tablet Orally Once a day , Medication List reviewed and reconciled with the patient * Allergies: B actrim: SOA, hydroCHLOROthiazide: body aches, Lisinopril: Cough - Side Effects. Objective: * Vitals: W t: 253.6, Temp: 98.6, BP: 130/80, HR: 87, Nurse: joseph, Ht: 64.50, BMI:42.85. * Examination: E NT/Respiratory: General Appearance: N AD. E yes: P ERRLA, sclera clear. E ars: a uditory canals normal bilaterally, TM's WNL. N ose : n ormal, no lesions, nares patent, clear rhinorrhea. S inuses : n on tender bilaterally. O ral cavity : erythema without exudate on pharynx. N lynne : n o cervical lymphadenopathy. H eart :?RRR, normal S1 S2, no murmurs. L ungs: c lear to auscultation bilaterally. ? Assessment: * Assessment: 1. Alanna hamilton URI - J06.9 (Primary) Plan: * Treatment: Value Reference Range r esults neg * Katya George 05/15/2025 0 1:55:15 PM EST > Provider reviewed results while patient in office. ?LAB: CBC Fingerstick (in house) (Collection Date & Time - 05/15/2025)* Value Reference Range w bc 10.4 3.5 - 10 * l ym 26.2 15 - 50 * m id 6.8 2 - 15 * g ran 67.0 35 - 80 * r bc 4.89 3.5 - 5.5 * h gb 14.5 11.5 - 16.5 * h ct 44.1 35 - 55 * m cv 90.1 75 - 100 * m ch 29.7 25 - 35 * m chc 32.9 31 - 38 * p lat 163 100 - 400 * Katya George 05/15/2025 0 1:49:41 PM EST > Provider reviewed results while patient in office. ?LAB: Covid test (in house) (Collection Date & Time - 05/15/2025)* Value Reference Range R esult: neg * Katya George 05/15/2025 0 1:54:38 PM EST > Provider reviewed results while patient in office. * Procedure Codes: 3 6416 CAPILLARY BLOOD DRAW, 84619 CBC WITH AUTO DIFF, 21555 Flu Test- Nasal Swab, Modifiers: QW , 89742 COVID TEST IN HOUSE, Modifiers: QW * Follow Up: p rn * Images: Billing Information: * Visit Code: 52540 Office Visit, Est Pt., Level 3. * Procedure Codes: 88065 CAPILLARY BLOOD DRAW. 58933 CBC WITH AUTO DIFF. 88351 Flu Test- Nasal Swab. Modifiers: QW 07068 COVID TEST IN HOUSE. Modifiers: QW * Electronic signature of DARRYN Calzada on 06/03/2025 at 08:01 AM EST Sign off status: Pending * Provider: DARRYN Bhatia Date: 07/15/2024 Generated for Kennedy reyes/Jude/Lana on: 08/03/2024 08:01 AM EST History and Physical Notes * HPI (History of Present Illness) Category Sub-Category Detail Notes Category Not es ENT/respiratory sore throat ear pain Short of Breath Chest Pain cough with blood stained s putum, greenish yellow sputum production Fever headache chest congestion nasal congestion sneezing, worse in t he morning, worse at night, off and on, some blood, green drainage, yellow drainage dizziness body aches ear stopped up left Examination Category Sub-Category Detail Notes Category Not es ENT/Respiratory Oral cavity : erythema without exudate on pharynx Sinuses : non tender bilateral ly Ears: auditory canals norm al bilaterally, TM's WNL Neck : no cervical lymphade nopathy Heart : RRR, normal S1 S2, n o murmurs Lungs: clear to auscultatio n bilaterally General Appearance: NAD Nose : normal, no lesions, nares patent, clear rhinorrhea Eyes: PERRLA, sclera clear
--- OUTSIDE RECORDS SUMMARY | 2025-05-23 13:50 | XMS_ITS | Encounter Summary ---
Author Organization [facility] Address [address] [place] [address] Care Team Providers Care Journeyman Tool And Die Maker Name Role Phone Tera Georges MD Primary Care Provider [phone] Reason for Referral * Diagnostic Imaging (Routine) - Closed Specialty Diagnoses / Procedures Referred By Jocelyn alanis Referred To Contact Radiology Diagnoses Visit for screening mammogram Procedures Mammo Screening Digital Tomosynthesis Bilateral With CAD Savanna Pringle MD [address] [place] [address] Phone: tel: fax: Referral ID Status Reason Start Date Expiration Date Visits Re quested Visits Authorized [id number] Closed 05/22/2025 08/21/2026 1 1 Reason for Visit * Diagnostic Imaging (Routine) - Closed Specialty Diagnoses / Procedures Referred By Jocelyn alanis Referred To Contact Radiology Diagnoses Visit for screening mammogram Procedures Mammo Screening Digital Tomosynthesis Bilateral With Savanna Patricia MD [address] [place] [address] Phone: tel: fax: Referral ID Status Reason Start Date Expiration Date Visits Re quested Visits Authorized [id number] Closed 05/22/2025 08/21/2026 1 1 Encounter Details Date Type Department Care Team (Late st Contact Info) Description 05/23/2025 1:50 PM EST - 05/23/2025 11:59 PM EST Hospital Encounter [facility] [address] [facility] [address] [facility] [address] [place] [address] Savanna Pringle MD [address] [facility] [address] [place] [id number] Visit for screening mammogram Discharge Disposition: Home or Self Care Social History Tobacco Use Types Packs/Day Years Used Date Smoking Tobacco: Never Assessed Abuse Screen Answer Date Recorded Unsafe at Home or Work/School Not on file Feels Threatened by Someone? Not on file 04/2023 Does Anyone Keep You from Co ntacting Others or Doint Things Outside the Home? Not on file 04/19/2023 Physical Sign of Abuse Present Not on file 1 Housing Stability Answer Date Recorded Current Living Arrangements Not on file 04/10 Potentially Unsafe Housing Conditions Not on valerie e 04/19/2023 Family and Community Support Answer [place] e Recorded Help with Day-to-Day Activities Not on file 04/19/2023 Lonely or Isolated Not on file 04/19/2023 Employment Answer Date Recorded Do you want help finding or keeping work or a jose angel b? Not on file 04/19/2023 Disabilities Answer Date Recorded Concentrating, Remembering, or Making Decisions Difficulty Not on file 04/19/2023 Doing Errands Independently Difficulty Not on fi le 04/19/2023 Education Answer Date Recorded Help with school or training? Not on file Preferred Language Not on file 04/19/2023 Comments No Sex and Gender Information Value Date Recorded Sex Assigned at Not on file Legal Sex Female 1:49 PM EDT Gender Identity Not on file Sexual Orientation Not on file documented as of this encounter Plan of Treatment Not on file documented as of this encounter Procedures Procedure Name Priority Date/Time Associated Diagnosis Comments MAMMO SCREENING DIGITAL TOMOSYNTHESIS BILATERAL W CAD Routine 05/23/2025 2:18 PM EST Visit for screening mammogram documented in this encounter Results * Mammo Screening Digital Tomosynthesis Bilateral With CAD (05/23/2025 2:18 PM EST) Anatomical Region Laterality Modality Breast N/A Mammography 05/25/2025 1:28 PM EST Impressions 05/25/2025 1:30 PM EST Negative bilateral mammogram. RECOMMENDATION: Continue annual screening mammography. BI-RADS CATEGORY 1, NEGATIVE. CAD was utilized. The standard false-negative rate of mammography is between 10% and 25%. Complex patterns or increased breast density will markedly elevate the false-negative rate of mammography. A letter, in lay terminology, with the results of this exam will be mailed to the patient. 05/25/2025 1:[address] Garfield Castano MD on Narrative 05/25/2025 1:30 PM EST DIGITAL SCREENING MAMMOGRAM WITH TOMOSYNTHESIS HISTORY: Screening Mammography. Low dose full field digital breast tomosynthesis imaging was performed with 2D and 3D acquisitions consisting of bilateral CC and MLO views. Examination is compared to prior examination dating back to 12/12/2015. Examination is read in conjunction with computer aided detection. FINDINGS: There are scattered areas of fibroglandular density. No suspicious masses, microcalcifications or areas of architectural distortion are present. Savanna Pringle MD IMG MAMMOGRAPHY ORDERABLES Fi nal Result documented in this encounter Visit Diagnoses Diagnosis Visit for screening mammogram documented in this encounter Care Teams Journeyman Tool And Die Maker Relationship Specialty Start Date End Date Tera Georges MD [address] [facility] [address] [facility] [address] [place] [address] PCP - General Family Medicine 06/27/16 documented as of this encounter
--- OUTSIDE RECORDS SUMMARY | 2025-06-03 08:01 | XMS_ITS | Patient Health Record ---
Author Organization [facility] Address [address] [facility] [address] [place] [phone] Care Team Providers Care Solutions Sales Executive Name Role Phone Eva Georges Primary Care Provider Gabi Grissom Unavailable [phone] Alyson Granda Unavailable [phone] Allergies Allergen (clinical drug ingredient) Drug/Non Drug Allergy documented on EMR Reaction Allergy Type Onset Date Status sulfamethoxazole / trimethoprim Bactrim SOA Drug Allergy Active hydrochlorothiazide hydroCHLOROthiazide body aches D rug Allergy Active lisinopril Lisinopril Cough Drug Allergy Active Results Component Value Reference Range Notes CBC Fingerstick (in house) Reviewed date:05/16/2025 02:14:20 [...] - 38 plat 163 100 - 400 Influenza Screen (in house) Reviewed date:05/16/2025 02:14:20 PM Interpretation: Performing Lab: Notes/Report: results neg P-TSH reflex to FT4 Reviewed date:12/21/2024 01:10:59 PM Interpretation: Performing Lab: Notes/Report: Test performed by [facility], [employer] [facility] [facility] , [address], [place] [address] Chalo Sow MD, Training Mgr CLIA: [id number] TSH reflex to FT4 2.30 0.43-5.25 mU/L P-Lipid Panel Reviewed date:12/21/2024 01:10:59 PM Interpretation: Performing Lab: Notes/Report: Test performed by [facility] [address] [place] [address] , [address], [place] [address] Chalo Sow MD, Training Mgr CLIA: [id number] Cholesterol 165 <200 mg/dL Triglycerides 136 <150 [...] Results: 100 Units: mg/dL % Change: -27% P-Comprehensive Metabolic Pa adela (CMP) Reviewed date:12/21/2024 01:10:59 PM Interpretation: Performing Lab: Notes/Report: Test performed by [facility] [address] [place] [address] , [address], [place] [address] Chalo Sow MD, Training Mgr CLIA: [id number] Sodium 140 135-145 mmol/L Potassium 4.1 3.5-5.3 [...] 0.4 <0.2-1.2 mg/dL A/G Ratio 1.8 1.1-2.5 CBC Venipuncture (in house) Reviewed date:12/21/2024 01:10:59 [...] - 38 platlet 197 100 - 400 X ray : Knee, right Reviewed date:09/28/2024 08:59:09 AM Interpretation: Performing Lab: Notes/Report: MRI : knee, right without co ntrast Reviewed date:12/21/2024 01:11:00 PM Interpretation: Performing Lab: Notes/Report: Covid test (in house) Reviewed date:05/16/2025 02:14:20 PM Interpretation: Performing Lab: Notes/Report: Result: neg Reason For Referral Diagnosis 1 Right knee pain, uns pecified chronicity (M25.561) [facility] Referring Provider First Name Alyson Referring Provider Last Name Jesus Alberto Referring Provider Speciality Physician Olive Pitter Referred Provider Specialty Orthopedic S urgery General Notes Alyson Granda 06/2025 12:34:57 PM >Needs an appt with Yoli Tejada Brynn 12/20/2024 01:28:41 PM > 12/24/2024 at 02:30pm; lvm for patient with date/time Referral Priority Routine Medications Medication SIG (Take, Route, Frequency, Duration) Notes Start Date End Date Status Cefdinir 300 MG 1 cap(s) Orally Two times a day; Duration: 10 days 05/15/2025 Active Bromfed DM 2-30-10 MG/5ML 5-10 mL Orally [...] hours prn; Duration: 5 days 12/20/2024 Active Immunizations Vaccine Route Administration Date Status Comme nts Tetanus Tdap-Adacel (over 7yrs) IM Intramuscular 05/08/2018 Administered Shingrix IM Intramuscular 05/21/2022 Administered Shingrix IM Intramuscular 09/20/2022 Administered PNEUMOVAX 23 VACCINE IM Intramuscular 08/18/2023 Administe red Fluzone Quad (6months&older) IM Intramuscular 05/12/2022 Administered Fluzone Quad (6months&older) IM Intramuscular 03/28/2023 Administered Fluzone Quad (6months&older) IM Intramuscular 05/07/2024 Administered Fluzone Quad (6months&older) IM Intramuscular 03/29/2025 Administered DT, 7 YEARS OR OLDER Unknown 09/11/1996 Administered COVID 19 Pfizer Unknown 10/10/2020 Administered COVID 19 Pfizer Unknown 05/17/2021 Administered Problems Problem Type SNOMED Code ICD Code Onset Dates Problem Status W/U Status Risk Notes Problem Hypertension (25532667) Hypertension (401.9) Active confirmed Problem Essential hypertension (96080091) Essential (primary) hypertension (I10) Active confirmed Problem Hypertension (45782180) HTN (hypertension) (I10) Active confirmed Problem Environmental allergy (830889900) Environmental allergies (Z91.048) Active confirmed Problem Mixed hyperlipidemia (266819476) Mixed hyperlipidemia (E78.2) Active confirmed Problem Allergic rhinitis (14578013) Allergic rhinitis (J30.9) Active confirmed Problem Essential hypertension (88151306) Hypertension, unspecified type (I10) Active confirmed Vital Signs Heart Rate 87 /min 05/15/2025 Blood pressure diastolic 80 mm Hg 05/15/2025 Height 64.50 in 05/15/2025 Blood pressure systolic 130 mm Hg 05/15/2025 Weight 253.6 lbs 05/15/2025 BMI 42.85 kg/m2 05/15/2025 Encounters Encounter Location Date Provider Diagnosis [facility] [address] [facility] [address] [place] [phone] 09/26/2024 Alyson Granda Injury of right knee , initial encounter S89.91XA and Left leg cellulitis L03.116 [facility] [address] [facility] [address] [place] [id number] 12/20/2024 Alyson Granda HTN (hypertension) I 10 ; Mixed hyperlipidemia E78.2 ; Abnormal TSH R79.89 ; Acute URI J06.9 and Right knee pain, unspecified chronicity M25.561 [facility] [address] [facility] [address] [place] [phone] 02/25/2025 Gabi Grissom Environmental allerg ies Z91.048 and Bug bite W57.XXXA [facility] [address] [place], [place] [id number] 03/29/2025 Alyson Granda Encounter for immunization Z23 and Snoring R06.83 [facility] [address] [place], [place] [id number] 05/15/2025 Alyson Granda Acute URI J06.9 [facility] [address] [place], [place] [id number] 09/28/2024 Alyson Jesus Alberto [facility] [address] [place], [place] [id number] 11/28/2024 Eva Georges [facility] [address] [place], [place] [id number] 12/21/2024 Alyson Crowindra [facility] [address] [place] [id number] 12/31/2024 Eva Georges [facility] [address] [place] [id number] 03/12/2025 Eva Georges [facility] [address] [place] [id number] 08/20/2024 Eva Georges Mixed hyperlipidemia E78.2 [facility] [address] [place], [place] [id number] 10/16/2024 Eva Georges [facility] [address] [place], [place] [id number] 11/26/2024 Alyson Kinindra [facility] [address] [place], [place] [id number] 01/14/2025 Eva Georges Mixed hyperlipidemia E78.2 Assessments Encounter Date Diagnosis (ICD Code) Assessment Notes Treatment Notes Treatment Clinical Notes Section Notes 08/20/2024 Mixed hyperlipidemia (ICD-10 - E78.2) 09/26/2024 Left leg cellulitis (ICD-10 - L03.116) 09/26/2024 Injury of right knee, initial encounter (ICD-10 - S89.91XA) 12/20/2024 HTN (hypertension) (ICD-10 - I10) 12/20/2024 Mixed hyperlipidemia (ICD-10 - E78.2) 01/14/2025 Mixed hyperlipidemia (ICD-10 - E78.2) 02/25/2025 Environmental allergies (ICD-10 - Z91.048) 02/25/2025 Bug bite (ICD-10 - W57.XXXA) continue to wash with antibacteriak soap 03/29/2025 Snoring (ICD-10 - R06.83) 03/29/2025 Encounter for immunization (ICD-10 - Z23) 05/15/2025 Acute URI (ICD-10 - J06.9) 12/20/2024 Abnormal TSH (ICD-10 - R79.89) 12/20/2024 Acute URI (ICD-10 - J06.9) 12/20/2024 Right knee pain, unspecified chronicity (ICD-10 - M25.561) Plan Of Treatment Pending Test Test Name Order Date sleep study 03/29/2025 Insurance Providers Payer Name Payer Address Payer Phone Subscriber Number Group Number Insured Name Patient Relationship to Insured Coverage Start Date Coverage End Date [facility] [employer] [address] [place] [address] [id number] Gita [place] Self - patient is the insured Medical (General) History Medical History History ICD Code Hypertension Migraines hyperlipidemia Surgical History Surgery Date(Month/Year) Neg Heart Cath-Dr Cortés @ [facility] 2007 colonoscopy 07/01/2014 DNC 06/2016 Endometrial Ablasion - Dr. Pringle - [facility] 03/01/2018 Cyst Removal of Right Thumb 06/2022 Left heart cath at [facility] 2022
--- OUTSIDE RECORDS SUMMARY | 2025-06-03 08:02 | XMS_ITS | Clinical Summary ---
Author Organization [facility] Address [address] [place] [address] Care Team Providers Care Security Intelligence Analyst Name Role Phone Tera Georges MD Primary Care Provider [phone] Encounters Date Type Department Care Team Description 05/27/2025 Results Follow-Up [facility] [address] [place] [id number] Kelsie Leary, R.T.(R) 05/23/2025 1:50 PM EST - 05/23/2025 11:59 PM EST Hospital Encounter [facility] [place] [address] [facility] [address] [place] [address] Savanna Pringle MD Visit for screening mammogram Discharge Disposition: Home or Self Care 05/23/2025 Travel from Last 3 Months Family History Medical History Relation Name Comments Breast cancer Paternal Aunt Colon cancer Neg Hx Ovarian cancer Neg Hx Relation Name Status Comments Paternal Aunt Alive Social History Tobacco Use Types Packs/Day Years [...] on file Sexual Orientation Not on file Plan of Treatment Health Maintenance Due Date Last Done Comments Annual Gynecologic Pelvic an d Breast Exam 1965 COLOGUARD 11/07/2011 COLON CANCER SCREENING 5 YEA R SIGMOIDOSCOPY 11/07/2011 COLONOSCOPY 11/07/2011 COLORECTAL CANCER SCREENING 11/07/2011 CT COLONOGRAPHY 11/07/2011 FECAL OCCULT BLOOD TEST 11/07/2011 FIT Testing (1 year) 11/07/2011 ZOSTER VACCINE (2 of 2) 07/16/2022 05/21/2022 Pneumococcal Vaccine 50+ (2 of 2 - PCV) 08/18/2024 08/18/2023 ANNUAL PHYSICAL 05/27/2025 HEPATITIS C SCREENING 05/27/2025 MAMMOGRAM 05/23/2027 05/23/2025, 08/11, 08/17/2021, Additional history exists TDAP/TD VACCINES (3 - Td or Tdap) 05/08/2028 018, 09/11/1996 INFLUENZA VACCINE Completed 03/29/2025, 05/12/2022 Procedures Procedure Name Priority Date/Time Associated Diagnosis Comments MAMMO SCREENING DIGITAL TOMOSYNTHESIS BILATERAL W CAD Routine 05/23/2025 2:18 PM EST Visit for screening mammogram AMBRY GENETIC ASSESSMENT Routine 05/23/2025 8:23 AM EST from Last 3 Months Results * Mammo Screening Digital Tomosynthesis Bilateral [...] or areas of architectural distortion are present. us Savanna Pringle MD IMG MAMMOGRAPHY ORDERABLES Fi nal Result * (ABNORMAL) [facility] GENETIC RISK ASSESSMENT QUESTIONNAIRE - , (05/23/2025 8:23 AM EST) Jenniferuzsantos 14.1 ANGELI [employer] NCCN NCCN met(A) [facility] Comment:High Risk Cancer Ris k Assessment 05/23/2025 8:23 AM EST us Savanna Pringle MD GENETIC TESTING Final Result [employer]
[address] [place] [address], [place] [phone] from Last 3 Months Insurance [facility] PPO Care Teams Security Intelligence Analyst Relationship Specialty Start Date End Date Tera Georges MD [address] [facility] [address] [place] [address] PCP - General Family Medicine 06/27/16
--- OUTSIDE RECORDS SUMMARY | 2025-06-03 08:02 | XMS_ITS | Patient Health Record ---
Author Organization [facility] Address [address] [place] [address] Care Team Providers Care Maintenance Instructor Name Role Phone Meliza Branch Unavailable [phone] Savanna Pringle Unavailable [phone] Allergies Allergen (clinical drug ingredient) Drug/Non Drug Allergy documented on EMR Reaction Allergy Type Onset Date Status Information temporarily unavailable SHELLFISH (uncoded) Unspecified Allergy 02/19/2014 Active Information temporarily unavailable PEANUTS (uncoded) Unspecified Allergy 02/19/2014 Active Information temporarily unavailable SULFAMETHOXAZOLE-TRI METHOPRIM Unspecified Drug Allergy 02/19/2014 Active Results Component Value Reference Range Notes MAMMO SCREENING DIGITAL TERRELL SYNTHESIS BILATERAL W CAD Reviewed date:05/26/2025 01:52:24 PM Interpretation:BIRAD 1 Negative, follow up in one year Performing Lab: Notes/Report: DIGITAL SCREENING MAMMOGRAM WITH TOMOSYNTHESIS HISTORY: Screening [...] or areas of architectural distortion are present. Negative bilateral mammogram. RECOMMENDATION: Continue annual screening [...] PM by Dr. Garfield Castano MD on Signed by: Garfield Castano MD on 05/25/2025 1:30 PM +27 lbs no new issues Reason for Exam:->Breast Cancer Screening Reason For Referral No Information Medications Medication SIG (Take, Route, Frequency, Duration) Notes Start Date End Date Status Atorvastatin Calcium 10 MG Tablet 1 tablet Orally Once a day Active Metoprolol Succinate ER 50 MG Tablet Extended Release 24 Hour 1 tablet Orally Once a day Active Irbesartan 300 MG Tablet 1 tablet Orally Once a day Active Social History Sex Assigned At : Social History Observation Description Sex Assigned At Female Social History Drugs/Alcohol: Social Info Question Answer Notes Steroid Use Have you used anabolic (body building) st eroids? 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) 016 Active confirmed Secondary dysmenorrhea Problem Gynecological examination normal (64024563927889 4) Cervical smear, as part of routine gynecological examination (Z01.419) 016 Active confirmed Annual without abnormal findings Problem History and physical examination, follow-up (939928660) *Follow-up for Non-Malignant conditions (code also - acquired absence of organ (Z90.-) and identify personal hx malignant neoplasm (Z85.-)) (Z09) 017 Active confirmed Postoperative examination Vital Signs Blood pressure diastolic 80 mm Hg 11/22/2024 Height 65 in 11/22/2024 Blood pressure systolic 132 mm Hg 11/22/2024 Weight 246.8 lbs 11/22/2024 BMI 41.07 kg/m2 11/22/2024 Encounters Encounter Location Date Provider Diagnosis [facility] [address] [facility] [address] [place] [address] 11/22/2024 Savanna Pringle Automatic [employer] Machine 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 Avoid the use of tobacco and drugs. Limit the use of alcohol. Take a multivitamin daily that contains 400mcg folic acid, 400-500mg calcium, and 800 units vitamin D. Exercise regularly (4 or more times per week for 30 mins. or more each time), eat a healthy diet, and maintain a healthy weight. Perform monthly breast self exams., Well Visit, Women 50 to 65: Care Instructions material was published 11/22/2024 Visit for screening mammogram (ICD-10 - Z12.31) Plan Of Treatment Next Appt Details Provider Name:Savanna Pringle, 01/24/2026 02:15:00 PM, [address] [facility] [address], [place], [address], Insurance Providers Payer Name Payer Address Payer Phone Subscriber Number Group Number Insured Name Patient Relationship to Insured Coverage Start Date Coverage End Date Tomas DORANO [address] [place] [address] [id number] Gita Livingston Self - patient is the insured Medical (General) History Medical History History ICD Code HTN Obesity Allergies PMB Surgical History Surgery Date(Month/Year) Hysteroscopy w/ D&C and Myosure Tonsillectomy Heart Cath Endoscopy Henriette Teeth Extraction Endometrial Ablation Heart Cath Thumb surgery
--- OUTSIDE RECORDS SUMMARY | 2025-06-03 08:02 | XMS_ITS | Encounter Summary ---
[facility] Organization [facility] Address [address] [place] [address] Care Team Providers Care Vice President Lending Name Role Phone Tera Georges MD Primary Care Provider [phone] Encounter Details Date Type Department Care Team (Late st Contact Info) Description 05/27/2025 Results Follow-Up [facility] [address] [place] [address] Kelsie Leary, R.T.(R) Social History Tobacco Use Types Packs/Day Years [...] on file documented as of this encounter Progress Notes * Kelsie Leary R.T.(Reginald) - 05/31/2025 8:55 AM EST This patient recently completed the CARE risk assessment for a mammogram appointment. Based on the patient's responses, NCCN criteria for genetic testing was met. At the time of the assessment, the patient was provided with both written and video educational materials regarding genetic testing. Navigator follow-up: The patient received [employer] messaging with my contact information requesting a return call to discuss the risk assessment results. The patient has not responded at this time. documented in this encounter Plan of Treatment Not on file documented as of this encounter Visit Diagnoses Not on filedocumented in this encounter Care Teams Vice President Lending Relationship Specialty Start Date End Date Tera Georges MD [facility] [address] [facility] [address] [place] [address] PCP - General Family Medicine 06/27/16 documented as of this encounter
--- OUTSIDE RECORDS SUMMARY | 2025-06-03 08:02 | XMS_ITS | Encounter Summary ---
[facility] Organization [facility] Address [address] [place] [address] Care Team Providers Care Avionics Systems Integration Specialist Name Role Phone Tera Georges MD Primary Care Provider [phone] Encounter Details Date Type Department Care Team (Latest Contact Info) Description 05/23/2025 Travel Social History Tobacco Use Types Packs/Day Years [...] on filedocumented in this encounter Care Teams Avionics Systems Integration Specialist Relationship Specialty Start Date End Date Tera Georges MD [address] [facility] [address] [facility] [address] [place] [address] PCP - General Family Medicine 06/27/16 documented as of this encounter
== END ==
LOC: SL 07:59
PROVIDERS: PCP Family Medicine; Visit Provider Physician Assistant
DX: G47.33 Obstructive sleep apnea (adult) (pediatric) (principal); I10 Essential (primary) hypertension; G47.36 Sleep related hypoventilation in conditions classified elsewhere
CPT/HCPCS: G0399